=== PATIENT | female | born 1955 | race Caucasian/White ===

== ENCOUNTER 2018-09-20 12:33 | Inpatient (IN) | payer BC ==
[~2018-09-20] VITALS: Ht 168.9 cm; Wt 146.4 kg
[2018-09-20] MEDS ORDERED: SERT50TA28 PO (13:19)
[2018-09-20] MEDS ORDERED: SPIR25TA5 PO (13:19)
[2018-09-20] MEDS ORDERED: LIOT5TAB3 PO (13:19)
[2018-09-20] MEDS ORDERED: FURO20TA3 PO (13:19)
[2018-09-20] MEDS ORDERED: LEVO200T5 PO (13:19)
[2018-09-20] MEDS ORDERED: POTA10TA17 PO (13:19)
[2018-09-20 13:22] LABS: BASOPHILS # (AUTO) 0.02 x10^3/uL (0-0.1); BASOPHILS % (AUTO) 0 % (0-1); EOSINOPHILS # (AUTO) 0.15 x10^3/uL (0-0.4); EOSINOPHILS % (AUTO) 2 % (1-7); LYMPHOCYTES # (AUTO) 0.43 x10^3/uL (1-3.4); LYMPHOCYTES % (AUTO) 7 % (22-44); MD NO; MEAN CORPUSCULAR HEMOGLOBIN 26.9 pg (27.0-34.8); MEAN CORPUSCULAR HGB CONC 32.4 g/dL (32.4-35.8); MEAN CORPUSCULAR VOLUME 83.1 fL (80-100); MEAN PLATELET VOLUME 7.9 fL (7.4-10.4); MONOCYTES % (AUTO) 8 % (2-9); NEUTROPHILS # (AUTO) 5.42 x10^3/uL (1.8-6.8); NEUTROPHILS % (AUTO) 83 % (42-75); PLATELET COUNT 152 x10^3/uL (130-400); RED BLOOD COUNT 5.98 x10^6/uL (3.82-5.3); RED CELL DISTRIBUTION WIDTH 18.1 % (9.6-15.2)
[2018-09-20 13:34] LABS: CHLORIDE 103 mmol/L (98-107)
[2018-09-20 13:43] LABS: ANION GAP 7 mmol/L (5-15); CALCIUM 9.1 mg/dL (8.5-10.1); CREATININE 0.76 mg/dL (0.55-1.02); TROPONIN I < 0.015 ng/mL (0.000-0.045)
[2018-09-20] MEDS ORDERED: FUROSEMIDE 40 MG/4 ML ONE (14:14)
[2018-09-20] MEDS ORDERED: FUROSEMIDE 40 MG/4 ML IV ONE (15:00)
[2018-09-20 15:38] VITALS: BP 132/80
[2018-09-20 15:41] VITALS: BP 132/80
[2018-09-20 16:17] LABS: HEMOGLOBIN A1C 6.5 % (4.2-6.3)
[2018-09-20] MEDS: ENOXAPARIN 40 MG/0.4 ML SQ SCH (16:59)
[2018-09-20] MEDS: FUROSEMIDE 40 MG/4 ML IV SCH (17:00)
[2018-09-20 19:26] LABS: TROPONIN I < 0.015 ng/mL (0.000-0.045)
[2018-09-20 19:37] VITALS: BP 100/66
[2018-09-20] MEDS: ACETAMINOPHEN 325 MG TABLET PO PRN (21:16)
[2018-09-21] MEDS ORDERED: DIPHENHYDRAMINE 25 MG CAPSULE PO PRN
[2018-09-21 00:58] VITALS: BP 93/54
[2018-09-21 05:20] LABS: CHLORIDE 100 mmol/L (98-107)
[2018-09-21 05:30] LABS: ALANINE AMINOTRANSFERASE 17 U/L (12-78); ALBUMIN 2.7 g/dL (3.4-5.0); ALKALINE PHOSPHATASE 102 U/L (45-117); ANION GAP 6 mmol/L (5-15); BILIRUBIN,TOTAL 2.1 mg/dL (0.2-1.0); CALCIUM 8.7 mg/dL (8.5-10.1); CHOL/HDL RATIO 4.1; CHOLESTEROL, TOTAL 136 mg/dL (140-239); CREATININE 0.76 mg/dL (0.55-1.02); HDL CHOL % 24 % (28-40); HDL CHOLESTEROL (DIRECT) 33 mg/dL (40-60); LDL CHOLESTEROL,CALCULATED 88 mg/dL (54-169); LDL/HDL RATIO 2.7 (0.5-3.0); TOTAL PROTEIN 7.4 g/dL (6.4-8.2); TRIGLYCERIDES 77 mg/dL (50-200); VLDL CHOLESTEROL 15 mg/dL (0-25)
[2018-09-21 05:37] LABS: BASOPHILS # (AUTO) 0.04 x10^3/uL (0-0.1); BASOPHILS % (AUTO) 1 % (0-1); EOSINOPHILS # (AUTO) 0.51 x10^3/uL (0-0.4); EOSINOPHILS % (AUTO) 9 % (1-7); LYMPHOCYTES # (AUTO) 0.62 x10^3/uL (1-3.4); LYMPHOCYTES % (AUTO) 11 % (22-44); MD NO; MEAN CORPUSCULAR HGB CONC 32.5 g/dL (32.4-35.8); MEAN CORPUSCULAR VOLUME 83.2 fL (80-100); MONOCYTES # (AUTO) 0.69 x10^3/uL (0.2-0.8); MONOCYTES % (AUTO) 12 % (2-9); NEUTROPHILS # (AUTO) 3.98 x10^3/uL (1.8-6.8); NEUTROPHILS % (AUTO) 68 % (42-75); PLATELET COUNT 166 x10^3/uL (130-400); RED BLOOD COUNT 5.47 x10^6/uL (3.82-5.3); RED CELL DISTRIBUTION WIDTH 17.3 % (9.6-15.2)
[2018-09-21 07:16] VITALS: BP 100/59
[2018-09-21] MEDS ORDERED: LEVOTHYROXINE 200 MCG TABLET PO SCH (09:00)
[2018-09-21] MEDS ORDERED: LIOTHYRONINE 5 MCG TABLET PO SCH ×2 (09:00)
[2018-09-21] MEDS: FUROSEMIDE 40 MG/4 ML IV SCH ×2 (09:58→17:36)
[2018-09-21] MEDS: SERTRALINE 50MG TABLET PO SCH (09:58)
[2018-09-21] MEDS: POTASSIUM CHLORIDE 20 MEQ TAB.ER.PRT PO SCH (09:58)
[2018-09-21 12:21] VITALS: BP 104/56
[2018-09-21] MEDS: ACETAMINOPHEN 325 MG TABLET PO PRN (13:25)
[2018-09-21] MEDS: ENOXAPARIN 40 MG/0.4 ML SQ SCH (17:36)
[2018-09-21 19:24] VITALS: BP 108/59
[2018-09-22 01:32] VITALS: BP 114/62
[2018-09-22] MEDS: ACETAMINOPHEN 325 MG TABLET PO PRN ×2 (02:47→22:04)
[2018-09-22] MEDS: LIOTHYRONINE 5 MCG TABLET PO SCH (05:26)
[2018-09-22 05:37] LABS: ANION GAP 6 mmol/L (5-15); CALCIUM 8.7 mg/dL (8.5-10.1); CHLORIDE 99 mmol/L (98-107)
[2018-09-22 05:39] LABS: CREATININE 0.67 mg/dL (0.55-1.02)
[2018-09-22 05:40] LABS: BASOPHILS # (AUTO) 0.04 x10^3/uL (0-0.1); BASOPHILS % (AUTO) 1 % (0-1); EOSINOPHILS # (AUTO) 0.47 x10^3/uL (0-0.4); EOSINOPHILS % (AUTO) 9 % (1-7); LYMPHOCYTES # (AUTO) 0.55 x10^3/uL (1-3.4); LYMPHOCYTES % (AUTO) 10 % (22-44); MD NO; MEAN CORPUSCULAR HEMOGLOBIN 26.7 pg (27.0-34.8); MEAN CORPUSCULAR HGB CONC 32.1 g/dL (32.4-35.8); MEAN CORPUSCULAR VOLUME 83.2 fL (80-100); MEAN PLATELET VOLUME 7.9 fL (7.4-10.4); MONOCYTES # (AUTO) 0.65 x10^3/uL (0.2-0.8); MONOCYTES % (AUTO) 12 % (2-9); NEUTROPHILS # (AUTO) 3.76 x10^3/uL (1.8-6.8); NEUTROPHILS % (AUTO) 69 % (42-75); PLATELET COUNT 159 x10^3/uL (130-400); RED BLOOD COUNT 5.31 x10^6/uL (3.82-5.3); RED CELL DISTRIBUTION WIDTH 17.2 % (9.6-15.2)
[2018-09-22] MEDS: LEVOTHYROXINE 200 MCG TABLET PO SCH (07:01)
[2018-09-22 07:09] VITALS: BP 95/62
[2018-09-22] MEDS: POTASSIUM CHLORIDE 20 MEQ TAB.ER.PRT PO SCH (09:55)
[2018-09-22] MEDS: SERTRALINE 50MG TABLET PO SCH (09:55)
[2018-09-22] MEDS: FUROSEMIDE 40 MG/4 ML IV SCH (09:56)
[2018-09-22 12:36] VITALS: BP 104/68
[2018-09-22] MEDS ORDERED: LORazepam 2 MG/ML, 1ML IVPush ONE (17:00)
[2018-09-22] MEDS: FUROSEMIDE 20 MG TABLET PO SCH (18:18)
[2018-09-22] MEDS: ENOXAPARIN 40 MG/0.4 ML SQ SCH (18:18)
[2018-09-22 18:50] VITALS: BP 109/68
[2018-09-23 00:40] VITALS: BP 106/64
[2018-09-23] MEDS: LEVOTHYROXINE 200 MCG TABLET PO SCH (05:34)
[2018-09-23] MEDS: LIOTHYRONINE 5 MCG TABLET PO SCH (05:34)
[2018-09-23 06:11] LABS: ANION GAP 6 mmol/L (5-15); CALCIUM 8.9 mg/dL (8.5-10.1); CHLORIDE 100 mmol/L (98-107); CREATININE 0.61 mg/dL (0.55-1.02)
[2018-09-23 07:25] VITALS: BP 95/61
[2018-09-23] MEDS: POTASSIUM CHLORIDE 20 MEQ TAB.ER.PRT PO SCH (09:15)
[2018-09-23] MEDS: SERTRALINE 50MG TABLET PO SCH (09:16)
[2018-09-23] MEDS: FUROSEMIDE 20 MG TABLET PO SCH ×2 (09:16→16:15)
[2018-09-23 13:27] VITALS: BP 96/66
[2018-09-23 16:12] VITALS: BP 122/74
[2018-09-23] MEDS: ENOXAPARIN 40 MG/0.4 ML SQ SCH (16:15)
[2018-09-23 19:40] VITALS: BP 104/61
[2018-09-24 01:31] VITALS: BP 103/69
[2018-09-24] MEDS: ACETAMINOPHEN 325 MG TABLET PO PRN (04:19)
[2018-09-24 05:21] LABS: ANION GAP 3 mmol/L (5-15); CALCIUM 8.8 mg/dL (8.5-10.1); CHLORIDE 99 mmol/L (98-107); CREATININE 0.62 mg/dL (0.55-1.02)
[2018-09-24] MEDS: LIOTHYRONINE 5 MCG TABLET PO SCH (05:48)
[2018-09-24] MEDS: LEVOTHYROXINE 200 MCG TABLET PO SCH (05:48)
[2018-09-24] MEDS: FUROSEMIDE 20 MG TABLET PO SCH ×2 (07:45→16:36)
[2018-09-24] MEDS: POTASSIUM CHLORIDE 20 MEQ TAB.ER.PRT PO SCH (07:45)
[2018-09-24 08:16] VITALS: BP 119/72
[2018-09-24] MEDS: SERTRALINE 50MG TABLET PO SCH (09:06)
[2018-09-24 13:19] VITALS: BP 112/72
[2018-09-24] MEDS: ENOXAPARIN 40 MG/0.4 ML SQ SCH (16:00)
[2018-09-24 19:03] VITALS: BP 120/67
[2018-09-25 02:13] VITALS: BP 110/54
[2018-09-25] MEDS: ACETAMINOPHEN 325 MG TABLET PO PRN (02:51)
[2018-09-25] MEDS: LEVOTHYROXINE 200 MCG TABLET PO SCH (05:05)
[2018-09-25] MEDS: LIOTHYRONINE 5 MCG TABLET PO SCH (05:05)
[2018-09-25 07:04] VITALS: BP 98/63
[2018-09-25] MEDS: FUROSEMIDE 20 MG TABLET PO SCH (09:25)
[2018-09-25] MEDS: SERTRALINE 50MG TABLET PO SCH (09:25)
[2018-09-25] MEDS: POTASSIUM CHLORIDE 20 MEQ TAB.ER.PRT PO SCH (09:25)
[2018-09-25] MEDS ORDERED: SPIRONOLACTONE 25 MG TABLET PO SCH (09:30)
[2018-09-25 14:07] VITALS: BP 117/5
== END 2018-09-25 16:15 | disposition home or self-care (01) | DRG 291 ==
LOC: ED 14:36 → EDIP 14:37 → 4WST 15:11 → DCLOUNGE 09-25 15:52
PROVIDERS: ADMIT Hospitalist; ATTEND Hospitalist
DX: I11.0 Hypertensive heart disease with heart failure (principal); J96.01 Acute respiratory failure with hypoxia; J98.11 Atelectasis; E03.9 Hypothyroidism, unspecified; F32.9 Major depressive disorder, single episode, unspecified; G47.33 Obstructive sleep apnea (adult) (pediatric); I27.20 Pulmonary hypertension, unspecified; I50.9 Heart failure, unspecified; I73.9 Peripheral vascular disease, unspecified; M06.9 Rheumatoid arthritis, unspecified; R32 Unspecified urinary incontinence; Z77.090 Contact with and (suspected) exposure to asbestos; Z90.710 Acquired absence of both cervix and uterus; Z98.42 Cataract extraction status, left eye; Z98.41 Cataract extraction status, right eye; Z88.8 Allergy status to other drugs, medicaments and biological substances
CPT/HCPCS: 36415; 71045; 71275; 76700; 80048; 80053; 80061; 82040; 83036; 83735; 83880; 84100; 84443; 84484; 85025; 93005; 93306; 93970; 96374; 99285; G0378; J1650; J1940; J2060; Q0163

== ENCOUNTER → 2018-11-29 | Outpatient (CLI) | payer BC ==
[~2018-11-29] MED LIST: FURO20TA3 PO; LEVO200T5 PO; LIOT5TAB3 PO; POTA10TA17 PO; SERT50TA28 PO; SPIR25TA5 PO
== END | disposition home or self-care (01) ==
LOC: CFH 15:14
PROVIDERS: ATTEND Nurse Practitioner Family
DX: J90 Pleural effusion, not elsewhere classified (principal); J98.4 Other disorders of lung; R59.1 Generalized enlarged lymph nodes; I51.7 Cardiomegaly; I31.1 Chronic constrictive pericarditis; Z87.891 Personal history of nicotine dependence
CPT/HCPCS: 71250

== ENCOUNTER 2019-02-20 17:39 | Inpatient (IN) | payer BC ==
[~2019-02-20] VITALS: Ht 167.6 cm; Wt 149.9 kg
--- NOTE | 2019-02-20 17:53 | NUR ---
LATE ENTRY 174, PT IN TRIAGE ON HER HOME PORTABLE 02 CONCENTRATOR. FINGERS AND NOSE APPEAR CYANOTIC, SP02 79%. PT TO ROOM 25 VIA WHEELCHAIR AND PLACED ON 02 4LNC WITH IMPROVEMENT IN SP02 TO 92%, AND SKIN COLOR IMPROVING.
[2019-02-20] MEDS ORDERED: SODIUM CHLORIDE FLUSH 10ML SYR IVF ONE (18:00)
[2019-02-20] MEDS ORDERED: DILTIAZEM 5 MG/ML, 5ML IV ONE (18:00)
[2019-02-20] MEDS ORDERED: DILTIAZEM 5 MG/ML, 5ML ONE (18:27)
[2019-02-20] MEDS ORDERED: PLEASE ENTER WEIGHT MC SCH (18:30)
[2019-02-20 18:36] LABS: BASOPHILS # (AUTO) 0.01 x10^3/uL (0-0.1); BASOPHILS % (AUTO) 0 % (0-1); EOSINOPHILS # (AUTO) 0.17 x10^3/uL (0-0.4); EOSINOPHILS % (AUTO) 3 % (1-7); LYMPHOCYTES # (AUTO) 0.36 x10^3/uL (1-3.4); LYMPHOCYTES % (AUTO) 7 % (22-44); MD NO; MEAN CORPUSCULAR HEMOGLOBIN 30.8 pg (27.0-34.8); MEAN CORPUSCULAR HGB CONC 32.8 g/dL (32.4-35.8); MEAN CORPUSCULAR VOLUME 93.9 fL (80-100); MEAN PLATELET VOLUME 8.1 fL (7.4-10.4); MONOCYTES # (AUTO) 0.41 x10^3/uL (0.2-0.8); MONOCYTES % (AUTO) 8 % (2-9); NEUTROPHILS # (AUTO) 4.16 x10^3/uL (1.8-6.8); NEUTROPHILS % (AUTO) 81 % (42-75); PLATELET COUNT 134 x10^3/uL (130-400); RED BLOOD COUNT 5.12 x10^6/uL (3.82-5.3); RED CELL DISTRIBUTION WIDTH 15.7 % (9.6-15.2)
[2019-02-20] MEDS ORDERED: HEPARIN 25,000 UNITS/500ML PMX 500 ML ONE (18:36)
[2019-02-20 18:42] LABS: CHLORIDE 103 mmol/L (98-107)
[2019-02-20 18:43] LABS: ALBUMIN 3.2 g/dL (3.4-5.0); ANION GAP 1 mmol/L (5-15); CALCIUM 9.7 mg/dL (8.5-10.1); CREATININE 0.77 mg/dL (0.55-1.02)
[2019-02-20 18:46] LABS: TROPONIN I < 0.015 ng/mL (0.000-0.045)
--- NOTE | 2019-02-20 19:07 | NUR ---
PT RESTING IN ROOM. O2 INCREASED TO 3L NC TO KEEP >92%. ALL OTHER VSS. RN VERIFIED WITH PHARMACY THAT DILTIAZEM AND HEPARIN CAN RUN TOGETHER IN THE SAME LINE. WILL START MEDICATIONS NOW. NO NEEDS EXPRESSED. CALL ENID RICKETTS.
[2019-02-20] MEDS: DILTIAZEM 125 MG in SODIUM CHLORIDE 0.9% 100 ML IV SCH ×4 (19:10→22:50)
--- NOTE | 2019-02-20 19:15 | NUR ---
PT RESTING IN ROOM. VSS. HR DECREASED SINCE DILT ADMIN. PT REPORTS EASIER TO BREATHE. DILT GTT STARTED AND INFUSING NOW. AWAITING HEPARIN PROTOCOL ORDERS AT THIS TIME. 1 SIDERAIL LOWERED PER REQUEST OF PT D/T ANXIETY. PT EDUCATED ON FALL RISKES AND AGREES TO STAY IN BED AND CALL FOR HELP IF NEEDS TO GET UP. NO OTHER REQUESTS AT THIS TIME.
--- NOTE | 2019-02-20 20:02 | NUR ---
call made to pharmacy at this time to enter heparin doses. awaiting order.
[2019-02-20] MEDS ORDERED: LORazepam 1MG TABLET ONE (20:19)
[2019-02-20] MEDS ORDERED: HEPARIN 5,000 UNITS/ML, 1ML IV ONE (20:30)
[2019-02-20] MEDS ORDERED: HEPARIN 25,000 UNITS/500ML PMX 500 ML IV PRN ×2 (20:30→22:30)
[2019-02-20] MEDS ORDERED: HEPARIN 5,000 UNITS/ML, 1ML IV PRN (20:30)
[2019-02-20] MEDS ORDERED: LORazepam 1MG TABLET PO ONE (20:30)
[2019-02-20] MEDS ORDERED: HEPARIN 5,000 UNITS/ML, 1ML ONE (20:31)
--- NOTE | 2019-02-20 20:35 | NUR ---
received rm assignment but rhe rm is cleaing per janee aguilar tele sup
--- NOTE | 2019-02-20 20:50 | NUR ---
PT RESTING IN ROOM WITH LIGHTS DIMMED. VSS. HR 70S-90S. 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 HEPARIN AND DILTIAZEM INFUSING AT THIS TIME. NO NEEDS EXPRESSED. AWAITING ROOM ASSIGNMENT.
--- NOTE | 2019-02-20 21:14 | NUR ---
report to lauren kaba. pt ready for transport.
[2019-02-20] MEDS ORDERED: FUROSEMIDE 20 MG TABLET PO SCH (21:30)
[2019-02-20 21:40] VITALS: BP 127/78
[2019-02-20] MEDS ORDERED: ONDANSETRON ODT 4 MG PO PRN (22:00)
[2019-02-20] MEDS: LIOTHYRONINE MC SCH (22:00)
[2019-02-20] MEDS ORDERED: LIDODERM 5% PATCH TD PRN (22:00)
[2019-02-20] MEDS ORDERED: ENALAPRILAT 1.25 MG/ML, 2ML IVPush PRN (22:00)
[2019-02-20] MEDS: SPIRONOLACTONE 25 MG TABLET PO SCH (22:30)
[2019-02-20] MEDS: FUROSEMIDE 40 MG/4 ML IV SCH (22:31)
[2019-02-21] MEDS: TEMAZEPAM 15 MG CAPSULE PO PRN ×2 (00:12→23:19)
[2019-02-21 01:14] VITALS: BP 128/72
[2019-02-21 02:48] LABS: TROPONIN I < 0.015 ng/mL (0.000-0.045)
[2019-02-21] MEDS: HEPARIN 5,000 UNITS/ML, 1ML IV PRN ×3 (02:58→22:59)
[2019-02-21] MEDS: LIOTHYRONINE MC SCH (06:00)
[2019-02-21] MEDS: LEVOTHYROXINE 200 MCG TABLET PO SCH (06:01)
[2019-02-21] MEDS: DILTIAZEM 125 MG in SODIUM CHLORIDE 0.9% 100 ML IV SCH ×4 (06:11→22:23)
[2019-02-21 06:20] LABS: MEAN CORPUSCULAR HEMOGLOBIN 30.8 pg (27.0-34.8); MEAN CORPUSCULAR HGB CONC 32.4 g/dL (32.4-35.8); MEAN CORPUSCULAR VOLUME 95.1 fL (80-100); PLATELET COUNT 141 x10^3/uL (130-400); RED BLOOD COUNT 5.04 x10^6/uL (3.82-5.3); RED CELL DISTRIBUTION WIDTH 15.9 % (9.6-15.2)
[2019-02-21 06:35] LABS: ANION GAP 4 mmol/L (5-15); CALCIUM 9.1 mg/dL (8.5-10.1); CHLORIDE 101 mmol/L (98-107)
[2019-02-21 06:40] LABS: CREATININE 0.78 mg/dL (0.55-1.02); TROPONIN I < 0.015 ng/mL (0.000-0.045)
[2019-02-21 07:25] LABS: MD SCAN
[2019-02-21 07:26] LABS: BASOPHILS # (AUTO) 0.02 x10^3/uL (0-0.1); BASOPHILS % (AUTO) 0 % (0-1); EOSINOPHILS # (AUTO) 0.26 x10^3/uL (0-0.4); EOSINOPHILS % (AUTO) 4 % (1-7); LYMPHOCYTES # (AUTO) 0.46 x10^3/uL (1-3.4); LYMPHOCYTES % (AUTO) 7 % (22-44); MONOCYTES # (AUTO) 0.69 x10^3/uL (0.2-0.8); MONOCYTES % (AUTO) 11 % (2-9); NEUTROPHILS # (AUTO) 4.99 x10^3/uL (1.8-6.8); NEUTROPHILS % (AUTO) 78 % (42-75)
[2019-02-21 08:06] VITALS: BP 130/85
[2019-02-21] MEDS: SPIRONOLACTONE 25 MG TABLET PO SCH ×2 (08:13→20:18)
[2019-02-21] MEDS: FUROSEMIDE 40 MG/4 ML IV SCH ×2 (08:14→17:44)
[2019-02-21] MEDS ORDERED: SERTRALINE 50MG TABLET PO SCH (09:00)
[2019-02-21] MEDS ORDERED: LIOTHYRONINE 5 MCG TABLET PO SCH (09:00)
[2019-02-21] MEDS ORDERED: POTA10CA PO (12:32)
[2019-02-21] MEDS: POTASSIUM CHLORIDE 10 MEQ TABLET.ER PO SCH (12:49)
[2019-02-21] MEDS: LIOTHYRONINE 5 MCG TABLET PO SCH (12:49)
[2019-02-21] MEDS ORDERED: MAGNESIUM SULFATE PMX 2GM/50ML 50 ML IV ONE (13:00)
[2019-02-21 15:58] VITALS: BP 115/77
[2019-02-21] MEDS: SERTRALINE 50MG TABLET PO SCH (20:18)
[2019-02-21] MEDS: ACETAMINOPHEN 325 MG TABLET PO PRN (23:19)
[2019-02-22 03:00] VITALS: BP 126/78
[2019-02-22] MEDS: LEVOTHYROXINE 200 MCG TABLET PO SCH (05:37)
[2019-02-22 05:47] LABS: ANION GAP 5 mmol/L (5-15); CALCIUM 9.1 mg/dL (8.5-10.1); CHLORIDE 100 mmol/L (98-107)
[2019-02-22 06:00] LABS: CREATININE 0.78 mg/dL (0.55-1.02); FREE T4 (FREE THYROXINE) 1.08 ng/dL (0.76-1.46)
[2019-02-22 06:31] LABS: BASOPHILS # (AUTO) 0.09 x10^3/uL (0-0.1); BASOPHILS % (AUTO) 1 % (0-1); EOSINOPHILS # (AUTO) 0.28 x10^3/uL (0-0.4); EOSINOPHILS % (AUTO) 4 % (1-7); LYMPHOCYTES # (AUTO) 0.58 x10^3/uL (1-3.4); LYMPHOCYTES % (AUTO) 8 % (22-44); MD NO; MEAN CORPUSCULAR HEMOGLOBIN 30.1 pg (27.0-34.8); MEAN CORPUSCULAR HGB CONC 32.5 g/dL (32.4-35.8); MEAN CORPUSCULAR VOLUME 92.6 fL (80-100); MEAN PLATELET VOLUME 8.1 fL (7.4-10.4); MONOCYTES # (AUTO) 0.71 x10^3/uL (0.2-0.8); MONOCYTES % (AUTO) 10 % (2-9); NEUTROPHILS # (AUTO) 5.31 x10^3/uL (1.8-6.8); NEUTROPHILS % (AUTO) 76 % (42-75); PLATELET COUNT 129 x10^3/uL (130-400); RED BLOOD COUNT 5.04 x10^6/uL (3.82-5.3); RED CELL DISTRIBUTION WIDTH 15.3 % (9.6-15.2)
[2019-02-22] MEDS ORDERED: DILTIAZEM 125 MG in SODIUM CHLORIDE 0.9% 100 ML IV SCH (07:30)
[2019-02-22 07:51] LABS: INTERNATIONAL NORMALIZED RATIO 1.15 (0.93-1.1)
[2019-02-22 08:30] VITALS: BP 133/72
[2019-02-22] MEDS: POTASSIUM CHLORIDE 10 MEQ TABLET.ER PO SCH (08:58)
[2019-02-22] MEDS: FUROSEMIDE 40 MG/4 ML IV SCH ×2 (08:58→16:24)
[2019-02-22] MEDS: APIXABAN 5 MG TABLET PO SCH ×2 (08:58→20:35)
[2019-02-22] MEDS: SERTRALINE 50MG TABLET PO SCH ×2 (08:58→20:35)
[2019-02-22] MEDS: SPIRONOLACTONE 25 MG TABLET PO SCH ×2 (08:58→20:35)
[2019-02-22] MEDS ORDERED: LIOTHYRONINE 5 MCG TABLET PO SCH (09:00)
[2019-02-22] MEDS: LIOTHYRONINE 5 MCG TABLET PO SCH (09:02)
[2019-02-22] MEDS ORDERED: WARFARIN MODERAT DOSE PROTOCOL XX SCH (12:00)
[2019-02-22 14:30] VITALS: BP 106/62
[2019-02-22] MEDS ORDERED: DILTIAZEM 60 MG CAP.ER.12H PO SCH (16:00)
[2019-02-22] MEDS: DILTIAZEM 240 MG CAP.ER.24H PO SCH (16:24)
[2019-02-22] MEDS: ACETAMINOPHEN 325 MG TABLET PO PRN (17:09)
[2019-02-22 19:47] VITALS: BP 111/71
[2019-02-23 00:43] VITALS: BP 128/75
[2019-02-23] MEDS: TEMAZEPAM 15 MG CAPSULE PO PRN ×2 (00:46→22:39)
[2019-02-23] MEDS: LEVOTHYROXINE 200 MCG TABLET PO SCH (05:48)
[2019-02-23 05:55] LABS: INTERNATIONAL NORMALIZED RATIO 1.22 (0.93-1.1); PROTHROMBIN TIME 12.7 Seconds (9.6-11.5)
[2019-02-23 05:59] LABS: ANION GAP 6 mmol/L (5-15); CALCIUM 9.3 mg/dL (8.5-10.1); CHLORIDE 98 mmol/L (98-107)
[2019-02-23 06:00] LABS: CREATININE 0.74 mg/dL (0.55-1.02)
[2019-02-23 07:22] VITALS: BP 102/70
[2019-02-23] MEDS: ACETAMINOPHEN 325 MG TABLET PO PRN (07:35)
[2019-02-23] MEDS: FUROSEMIDE 40 MG/4 ML IV SCH ×2 (08:26→16:30)
[2019-02-23] MEDS: APIXABAN 5 MG TABLET PO SCH ×2 (08:26→21:08)
[2019-02-23] MEDS: SERTRALINE 50MG TABLET PO SCH ×2 (08:26→21:08)
[2019-02-23] MEDS: POTASSIUM CHLORIDE 10 MEQ TABLET.ER PO SCH (08:26)
[2019-02-23] MEDS: SPIRONOLACTONE 25 MG TABLET PO SCH ×2 (08:27→21:08)
[2019-02-23] MEDS: DILTIAZEM 240 MG CAP.ER.24H PO SCH (08:47)
[2019-02-23] MEDS: LIOTHYRONINE 5 MCG TABLET PO SCH (08:47)
[2019-02-23 12:40] VITALS: BP 109/70
[2019-02-23 13:16] LABS: MICROSCOPIC INDICATED
[2019-02-23 20:00] VITALS: BP 116/72
[2019-02-24 00:02] VITALS: BP 111/73
[2019-02-24] MEDS: ACETAMINOPHEN 325 MG TABLET PO PRN (03:31)
[2019-02-24] MEDS: LEVOTHYROXINE 200 MCG TABLET PO SCH (06:03)
[2019-02-24 07:37] VITALS: BP 118/80
[2019-02-24] MEDS: FUROSEMIDE 40 MG/4 ML IV SCH ×2 (08:55→17:04)
[2019-02-24] MEDS: DILTIAZEM 240 MG CAP.ER.24H PO SCH (08:56)
[2019-02-24] MEDS: SERTRALINE 50MG TABLET PO SCH ×2 (08:56→20:22)
[2019-02-24] MEDS: APIXABAN 5 MG TABLET PO SCH ×2 (08:56→20:22)
[2019-02-24] MEDS: LIOTHYRONINE 5 MCG TABLET PO SCH (08:56)
[2019-02-24] MEDS: POTASSIUM CHLORIDE 10 MEQ TABLET.ER PO SCH (08:56)
[2019-02-24] MEDS: SPIRONOLACTONE 25 MG TABLET PO SCH ×2 (09:00→20:22)
[2019-02-24] MEDS: DOCUSATE 100 MG CAPSULE PO PRN (10:25)
[2019-02-24 13:21] VITALS: BP 104/66
[2019-02-24 18:52] VITALS: BP 106/69
[2019-02-24] MEDS ORDERED: SULFAMETH./TRIMETHOPRIM DS 800MG/160MG TABLET PO ONE (20:00)
[2019-02-24] MEDS ORDERED: SULFAMETH/TRIMETHOPRIM 40-8MG/ML SUSP. PO SCH (21:00)
[2019-02-25 01:25] VITALS: BP 128/90
[2019-02-25 04:33] LABS: BASOPHILS # (AUTO) 0.03 x10^3/uL (0-0.1); BASOPHILS % (AUTO) 0 % (0-1); EOSINOPHILS # (AUTO) 0.38 x10^3/uL (0-0.4); EOSINOPHILS % (AUTO) 5 % (1-7); LYMPHOCYTES # (AUTO) 0.48 x10^3/uL (1-3.4); LYMPHOCYTES % (AUTO) 6 % (22-44); MD NO; MEAN CORPUSCULAR HEMOGLOBIN 30.4 pg (27.0-34.8); MEAN CORPUSCULAR HGB CONC 32.5 g/dL (32.4-35.8); MEAN CORPUSCULAR VOLUME 93.4 fL (80-100); MEAN PLATELET VOLUME 7.9 fL (7.4-10.4); MONOCYTES # (AUTO) 0.88 x10^3/uL (0.2-0.8); MONOCYTES % (AUTO) 12 % (2-9); NEUTROPHILS # (AUTO) 5.93 x10^3/uL (1.8-6.8); NEUTROPHILS % (AUTO) 77 % (42-75); PLATELET COUNT 154 x10^3/uL (130-400); RED BLOOD COUNT 4.99 x10^6/uL (3.82-5.3); RED CELL DISTRIBUTION WIDTH 15.3 % (9.6-15.2)
[2019-02-25 04:44] LABS: ANION GAP 6 mmol/L (5-15); CALCIUM 9.1 mg/dL (8.5-10.1); CHLORIDE 95 mmol/L (98-107); CREATININE 0.73 mg/dL (0.55-1.02)
[2019-02-25] MEDS: LEVOTHYROXINE 200 MCG TABLET PO SCH (06:00)
[2019-02-25] MEDS: FUROSEMIDE 40 MG/4 ML IV SCH ×3 (07:30→22:56)
[2019-02-25 08:07] VITALS: BP 120/74
[2019-02-25] MEDS: SPIRONOLACTONE 25 MG TABLET PO SCH ×2 (08:23→20:39)
[2019-02-25] MEDS: APIXABAN 5 MG TABLET PO SCH ×2 (08:23→20:39)
[2019-02-25] MEDS: DILTIAZEM 240 MG CAP.ER.24H PO SCH (08:23)
[2019-02-25] MEDS: SERTRALINE 50MG TABLET PO SCH ×2 (08:24→20:39)
[2019-02-25] MEDS: POTASSIUM CHLORIDE 10 MEQ TABLET.ER PO SCH (08:24)
[2019-02-25] MEDS: LIOTHYRONINE 5 MCG TABLET PO SCH (08:32)
[2019-02-25 12:56] VITALS: BP 130/59
[2019-02-25] MEDS ORDERED: SULFAMETH./TRIMETHOPRIM DS 800MG/160MG TABLET PO ONE (14:59)
[2019-02-25] MEDS ORDERED: ALBUTEROL SULFATE 2.5 MG/3 ML NPPB SCH (15:00)
[2019-02-25] MEDS ORDERED: ALBUTEROL SULFATE 2.5 MG/3 ML NPPB PRN (16:30)
[2019-02-25 20:12] VITALS: BP 99/66
[2019-02-25] MEDS: SULFAMETH./TRIMETHOPRIM DS 800MG/160MG TABLET PO SCH (20:40)
[2019-02-25 20:44] VITALS: BP 123/73
[2019-02-25 22:55] VITALS: BP 119/72
[2019-02-26 01:08] VITALS: BP 122/80
[2019-02-26] MEDS: TEMAZEPAM 15 MG CAPSULE PO PRN ×2 (02:00→21:31)
[2019-02-26] MEDS: ACETAMINOPHEN 325 MG TABLET PO PRN ×2 (02:00→20:22)
[2019-02-26] MEDS: LEVOTHYROXINE 200 MCG TABLET PO SCH (05:43)
[2019-02-26 08:20] VITALS: BP 109/74
[2019-02-26] MEDS: SULFAMETH./TRIMETHOPRIM DS 800MG/160MG TABLET PO SCH ×2 (09:52→20:22)
[2019-02-26] MEDS: FUROSEMIDE 40 MG/4 ML IV SCH ×3 (09:52→21:31)
[2019-02-26] MEDS: SERTRALINE 50MG TABLET PO SCH ×2 (09:53→20:22)
[2019-02-26] MEDS: POTASSIUM CHLORIDE 10 MEQ TABLET.ER PO SCH (09:53)
[2019-02-26] MEDS: APIXABAN 5 MG TABLET PO SCH ×2 (09:53→20:22)
[2019-02-26] MEDS: SPIRONOLACTONE 25 MG TABLET PO SCH ×2 (09:54→20:22)
[2019-02-26] MEDS: DILTIAZEM 240 MG CAP.ER.24H PO SCH (09:54)
[2019-02-26] MEDS: LIOTHYRONINE 5 MCG TABLET PO SCH (10:12)
[2019-02-26 15:03] VITALS: BP 131/63
[2019-02-26 19:39] VITALS: BP 106/70
[2019-02-26 21:31] VITALS: BP 106/63
[2019-02-27 01:16] VITALS: BP 120/72
[2019-02-27] MEDS: LEVOTHYROXINE 200 MCG TABLET PO SCH (05:31)
[2019-02-27 05:55] LABS: BASOPHILS # (AUTO) 0.02 x10^3/uL (0-0.1); BASOPHILS % (AUTO) 0 % (0-1); EOSINOPHILS # (AUTO) 0.41 x10^3/uL (0-0.4); EOSINOPHILS % (AUTO) 7 % (1-7); LYMPHOCYTES % (AUTO) 7 % (22-44); MD NO; MEAN CORPUSCULAR HEMOGLOBIN 30.3 pg (27.0-34.8); MEAN CORPUSCULAR HGB CONC 32.7 g/dL (32.4-35.8); MEAN CORPUSCULAR VOLUME 92.6 fL (80-100); MEAN PLATELET VOLUME 7.7 fL (7.4-10.4); MONOCYTES # (AUTO) 0.79 x10^3/uL (0.2-0.8); MONOCYTES % (AUTO) 14 % (2-9); NEUTROPHILS # (AUTO) 4.25 x10^3/uL (1.8-6.8); NEUTROPHILS % (AUTO) 72 % (42-75); PLATELET COUNT 142 x10^3/uL (130-400); RED BLOOD COUNT 4.89 x10^6/uL (3.82-5.3); RED CELL DISTRIBUTION WIDTH 15.6 % (9.6-15.2)
[2019-02-27 06:06] LABS: ANION GAP 6 mmol/L (5-15); CALCIUM 9.2 mg/dL (8.5-10.1); CHLORIDE 93 mmol/L (98-107); CREATININE 0.97 mg/dL (0.55-1.02)
[2019-02-27 07:48] VITALS: BP 102/75
[2019-02-27] MEDS: SERTRALINE 50MG TABLET PO SCH ×2 (09:34→21:19)
[2019-02-27] MEDS: DOCUSATE 100 MG CAPSULE PO PRN (09:34)
[2019-02-27] MEDS: POTASSIUM CHLORIDE 10 MEQ TABLET.ER PO SCH (09:34)
[2019-02-27] MEDS: SPIRONOLACTONE 25 MG TABLET PO SCH ×2 (09:34→21:19)
[2019-02-27] MEDS: FUROSEMIDE 40 MG/4 ML IV SCH ×3 (09:34→21:19)
[2019-02-27] MEDS: DILTIAZEM 240 MG CAP.ER.24H PO SCH (09:34)
[2019-02-27] MEDS: LIOTHYRONINE 5 MCG TABLET PO SCH (09:34)
[2019-02-27] MEDS: APIXABAN 5 MG TABLET PO SCH ×2 (09:34→21:19)
[2019-02-27] MEDS: SULFAMETH./TRIMETHOPRIM DS 800MG/160MG TABLET PO SCH ×2 (09:34→21:19)
[2019-02-27] MEDS: ACETAMINOPHEN 325 MG TABLET PO PRN (12:32)
[2019-02-27 13:00] VITALS: BP 116/63
[2019-02-27 18:47] VITALS: BP 145/69
[2019-02-27] MEDS: TEMAZEPAM 15 MG CAPSULE PO PRN (23:57)
[2019-02-28] MEDS: TEMAZEPAM 15 MG CAPSULE PO PRN ×2 (01:25→21:56)
[2019-02-28 02:27] VITALS: BP 107/63
[2019-02-28] MEDS: LEVOTHYROXINE 200 MCG TABLET PO SCH (05:57)
[2019-02-28 06:21] LABS: BASOPHILS # (AUTO) 0.08 x10^3/uL (0-0.1); BASOPHILS % (AUTO) 1 % (0-1); EOSINOPHILS # (AUTO) 0.46 x10^3/uL (0-0.4); EOSINOPHILS % (AUTO) 7 % (1-7); LYMPHOCYTES # (AUTO) 0.51 x10^3/uL (1-3.4); LYMPHOCYTES % (AUTO) 8 % (22-44); MD NO; MEAN CORPUSCULAR HEMOGLOBIN 31.4 pg (27.0-34.8); MEAN CORPUSCULAR HGB CONC 33.6 g/dL (32.4-35.8); MEAN CORPUSCULAR VOLUME 93.3 fL (80-100); MEAN PLATELET VOLUME 8.1 fL (7.4-10.4); MONOCYTES # (AUTO) 0.84 x10^3/uL (0.2-0.8); MONOCYTES % (AUTO) 13 % (2-9); NEUTROPHILS # (AUTO) 4.43 x10^3/uL (1.8-6.8); NEUTROPHILS % (AUTO) 70 % (42-75); PLATELET COUNT 139 x10^3/uL (130-400); RED CELL DISTRIBUTION WIDTH 15.2 % (9.6-15.2)
[2019-02-28 06:22] LABS: ANION GAP 6 mmol/L (5-15); CALCIUM 9.1 mg/dL (8.5-10.1); CHLORIDE 95 mmol/L (98-107)
[2019-02-28 06:25] LABS: CREATININE 1.06 mg/dL (0.55-1.02)
[2019-02-28 06:34] VITALS: BP 106/52
[2019-02-28] MEDS: APIXABAN 5 MG TABLET PO SCH ×2 (09:48→21:57)
[2019-02-28] MEDS: SULFAMETH./TRIMETHOPRIM DS 800MG/160MG TABLET PO SCH ×2 (09:48→21:57)
[2019-02-28] MEDS: SERTRALINE 50MG TABLET PO SCH ×2 (09:48→21:57)
[2019-02-28] MEDS: SPIRONOLACTONE 25 MG TABLET PO SCH ×2 (09:49→21:57)
[2019-02-28] MEDS: FUROSEMIDE 40 MG/4 ML IV SCH ×2 (09:49→17:32)
[2019-02-28] MEDS: DILTIAZEM 240 MG CAP.ER.24H PO SCH (09:49)
[2019-02-28] MEDS: LIOTHYRONINE 5 MCG TABLET PO SCH (09:49)
[2019-02-28] MEDS: POTASSIUM CHLORIDE 10 MEQ TABLET.ER PO SCH (09:49)
[2019-02-28] MEDS: DOCUSATE 100 MG CAPSULE PO PRN ×2 (12:31→22:00)
[2019-02-28 13:20] VITALS: BP 109/61
[2019-02-28] MEDS ORDERED: FUROSEMIDE 40 MG/4 ML ONE (17:27)
[2019-02-28 17:29] VITALS: BP 106/51
[2019-02-28 19:00] VITALS: BP 104/65
[2019-03-01] VITALS (11 sets, daily range): BP systolic 105–133; BP diastolic 53–80
--- NOTE | 2019-03-01 02:16 | NUR ---
MAYA NICHOLSON - Fall Risk Medication(s) present and receiving anticoagulants.
[2019-03-01] MEDS: LEVOTHYROXINE 200 MCG TABLET PO SCH (06:10)
[2019-03-01 06:51] LABS: BASOPHILS # (AUTO) 0.01 x10^3/uL (0-0.1); BASOPHILS % (AUTO) 0 % (0-1); EOSINOPHILS % (AUTO) 7 % (1-7); LYMPHOCYTES # (AUTO) 0.45 x10^3/uL (1-3.4); LYMPHOCYTES % (AUTO) 7 % (22-44); MD NO; MEAN CORPUSCULAR HEMOGLOBIN 30.9 pg (27.0-34.8); MEAN CORPUSCULAR HGB CONC 33.1 g/dL (32.4-35.8); MEAN CORPUSCULAR VOLUME 93.4 fL (80-100); MONOCYTES % (AUTO) 13 % (2-9); NEUTROPHILS # (AUTO) 4.42 x10^3/uL (1.8-6.8); NEUTROPHILS % (AUTO) 73 % (42-75); PLATELET COUNT 158 x10^3/uL (130-400); RED BLOOD COUNT 4.97 x10^6/uL (3.82-5.3); RED CELL DISTRIBUTION WIDTH 15.1 % (9.6-15.2)
[2019-03-01 07:00] LABS: ANION GAP 2 mmol/L (5-15); CALCIUM 9.2 mg/dL (8.5-10.1); CHLORIDE 93 mmol/L (98-107)
[2019-03-01 07:01] LABS: CREATININE 1.14 mg/dL (0.55-1.02)
[2019-03-01] MEDS: FUROSEMIDE 40 MG/4 ML IV SCH ×2 (10:18→20:45)
[2019-03-01] MEDS: SPIRONOLACTONE 25 MG TABLET PO SCH ×2 (10:19→20:43)
[2019-03-01] MEDS: SULFAMETH./TRIMETHOPRIM DS 800MG/160MG TABLET PO SCH ×2 (10:19→20:44)
[2019-03-01] MEDS: POTASSIUM CHLORIDE 10 MEQ TABLET.ER PO SCH (10:19)
[2019-03-01] MEDS: SERTRALINE 50MG TABLET PO SCH ×2 (10:19→20:44)
[2019-03-01] MEDS: APIXABAN 5 MG TABLET PO SCH ×2 (10:19→20:44)
[2019-03-01] MEDS: DILTIAZEM 240 MG CAP.ER.24H PO SCH (10:19)
[2019-03-01] MEDS: LIOTHYRONINE 5 MCG TABLET PO SCH (10:26)
[2019-03-01] MEDS: ACETAMINOPHEN 325 MG TABLET PO PRN (20:44)
[2019-03-02 02:33] VITALS: BP 121/81
[2019-03-02] MEDS: TEMAZEPAM 15 MG CAPSULE PO PRN (03:00)
[2019-03-02 05:15] LABS: BASOPHILS # (AUTO) 0.03 x10^3/uL (0-0.1); BASOPHILS % (AUTO) 0 % (0-1); EOSINOPHILS # (AUTO) 0.36 x10^3/uL (0-0.4); EOSINOPHILS % (AUTO) 6 % (1-7); LYMPHOCYTES # (AUTO) 0.41 x10^3/uL (1-3.4); LYMPHOCYTES % (AUTO) 7 % (22-44); MD NO; MEAN CORPUSCULAR HEMOGLOBIN 30.6 pg (27.0-34.8); MEAN CORPUSCULAR VOLUME 92.7 fL (80-100); MEAN PLATELET VOLUME 8.1 fL (7.4-10.4); MONOCYTES # (AUTO) 0.81 x10^3/uL (0.2-0.8); MONOCYTES % (AUTO) 13 % (2-9); NEUTROPHILS # (AUTO) 4.52 x10^3/uL (1.8-6.8); NEUTROPHILS % (AUTO) 74 % (42-75); PLATELET COUNT 150 x10^3/uL (130-400); RED BLOOD COUNT 4.84 x10^6/uL (3.82-5.3); RED CELL DISTRIBUTION WIDTH 15.1 % (9.6-15.2)
[2019-03-02 05:27] LABS: ANION GAP 6 mmol/L (5-15); CALCIUM 9.2 mg/dL (8.5-10.1); CHLORIDE 95 mmol/L (98-107); CREATININE 0.95 mg/dL (0.55-1.02)
[2019-03-02] MEDS: LEVOTHYROXINE 200 MCG TABLET PO SCH (05:35)
[2019-03-02 06:45] VITALS: BP 104/57
[2019-03-02] MEDS: SERTRALINE 50MG TABLET PO SCH (08:48)
[2019-03-02] MEDS: LIOTHYRONINE 5 MCG TABLET PO SCH (08:49)
[2019-03-02] MEDS: SULFAMETH./TRIMETHOPRIM DS 800MG/160MG TABLET PO SCH (08:49)
[2019-03-02] MEDS: DILTIAZEM 240 MG CAP.ER.24H PO SCH (08:49)
[2019-03-02] MEDS: APIXABAN 5 MG TABLET PO SCH (08:49)
[2019-03-02] MEDS ORDERED: POTASSIUM CHLORIDE 10 MEQ TABLET.ER PO SCH (09:00)
[2019-03-02] MEDS ORDERED: SPIRONOLACTONE 25 MG TABLET PO SCH (09:00)
[2019-03-02] MEDS ORDERED: FUROSEMIDE 80 MG TABLET PO SCH (09:00)
[2019-03-02 12:15] VITALS: BP 102/67
[2019-03-02 15:00] VITALS: BP 120/83
[2019-03-02] MEDS ORDERED: APIX5TAB PO (15:55)
[2019-03-02] MEDS ORDERED: SPIR25TA5 PO (15:55)
[2019-03-02] MEDS ORDERED: DILT240C55 PO (15:55)
[2019-03-03] MEDS ORDERED: FUROSEMIDE 40 MG/4 ML IV SCH (09:00)
== END 2019-03-02 16:45 | disposition home health service (06) | DRG 291 ==
LOC: ED 19:14 → EDIP 20:10 → 5SO 21:19 → DCLOUNGE 03-02 16:38
PROVIDERS: ADMIT Family Medicine; ATTEND Family Medicine
PROC: 5A09357 Assistance with Respiratory Ventilation, Less than 24 Consecutive Hours, Continuous Positive Airway Pressure (ICD-10-PCS; principal; 2019-02-22)
PROC: 5A09357 Assistance with Respiratory Ventilation, Less than 24 Consecutive Hours, Continuous Positive Airway Pressure (ICD-10-PCS; 2019-02-25)
PROC: 5A09357 Assistance with Respiratory Ventilation, Less than 24 Consecutive Hours, Continuous Positive Airway Pressure (ICD-10-PCS; 2019-02-28)
PROC: 5A09357 Assistance with Respiratory Ventilation, Less than 24 Consecutive Hours, Continuous Positive Airway Pressure (ICD-10-PCS; 2019-03-01)
DX: I50.31 Acute diastolic (congestive) heart failure (principal); J96.20 Acute and chronic respiratory failure, unspecified whether with hypoxia or hypercapnia; F33.9 Major depressive disorder, recurrent, unspecified; D68.69 Other thrombophilia; N39.0 Urinary tract infection, site not specified; Z68.43 Body mass index [BMI] 50.0-59.9, adult; E66.01 Morbid (severe) obesity due to excess calories; I48.91 Unspecified atrial fibrillation; E03.9 Hypothyroidism, unspecified; F41.0 Panic disorder [episodic paroxysmal anxiety]; G47.33 Obstructive sleep apnea (adult) (pediatric); I87.8 Other specified disorders of veins; I27.29 Other secondary pulmonary hypertension; N28.9 Disorder of kidney and ureter, unspecified; I87.2 Venous insufficiency (chronic) (peripheral); I73.9 Peripheral vascular disease, unspecified; M06.9 Rheumatoid arthritis, unspecified; Z87.891 Personal history of nicotine dependence; Z90.710 Acquired absence of both cervix and uterus; Z88.1 Allergy status to other antibiotic agents; Z91.013 Allergy to seafood; Z91.018 Allergy to other foods; Z80.8 Family history of malignant neoplasm of other organs or systems; Z99.81 Dependence on supplemental oxygen; Z79.01 Long term (current) use of anticoagulants
CPT/HCPCS: 36415; 71045; 80048; 81001; 82040; 83735; 83880; 84439; 84443; 84481; 84484; 85025; 85520; 85610; 86140; 87077; 87086; 87186; 93005; 93306; 99285; G0378; J1644; J1940; J3475

== ENCOUNTER 2019-03-07 15:25 | Inpatient (IN) | payer BC ==
[~2019-03-07] VITALS: Ht 167.6 cm; Wt 153.6 kg
[~2019-03-07 15:25] MED LIST changes: +APIX5TAB PO; +DILT240C55 PO; +POTA10CA PO
--- NOTE | 2019-03-07 16:13 | NUR ---
PT ARRIVED TO ROOM 23 WITH TECH, ON HOME O2 5L, VIA WHEELCHAIR. PT SOB, O2 SAT 84% ON 5L NC. PT TRANSITIONED TO OXYMASK 8L AND O2 SAT IMPROVED TO 94%. PT DRESSED IN GOWN AND ATTACHED TO MONITOR, MD AT BEDSIDE FOR EXAM AND NEW ORDERS RECEIVED. FAMILY AT BEDSIDE. PT AAO X 4, C/O SOB AND LOW O2 SAT, REFERRED BY GEAR CUTTING MACHINE OPERATOR FOR HOPSITAL ADMISSION AND MD AWARE. PT RECENTLY DIAGNOSED WITH AFIB AND NEW HOME O2 DEPENDENT. FALL PRECAUTIONS IN PLACE, PIV ESTABLISHED, CALL LIGHT WITHIN REACH.
--- NOTE | 2019-03-07 16:15 | NUR ---
XRAY AT BEDSIDE.
--- NOTE | 2019-03-07 16:20 | NUR ---
LAB AT BEDSIDE.
[2019-03-07 16:34] LABS: BASOPHILS # (AUTO) 0.02 x10^3/uL (0-0.1); BASOPHILS % (AUTO) 0 % (0-1); EOSINOPHILS # (AUTO) 0.18 x10^3/uL (0-0.4); EOSINOPHILS % (AUTO) 3 % (1-7); LYMPHOCYTES # (AUTO) 0.38 x10^3/uL (1-3.4); LYMPHOCYTES % (AUTO) 6 % (22-44); MD NO; MEAN CORPUSCULAR VOLUME 93.8 fL (80-100); MEAN PLATELET VOLUME 8.3 fL (7.4-10.4); MONOCYTES # (AUTO) 0.63 x10^3/uL (0.2-0.8); MONOCYTES % (AUTO) 10 % (2-9); NEUTROPHILS # (AUTO) 5.22 x10^3/uL (1.8-6.8); NEUTROPHILS % (AUTO) 81 % (42-75); PLATELET COUNT 157 x10^3/uL (130-400); RED BLOOD COUNT 4.89 x10^6/uL (3.82-5.3); RED CELL DISTRIBUTION WIDTH 14.8 % (9.6-15.2)
[2019-03-07 16:39] LABS: ALBUMIN 3.1 g/dL (3.4-5.0); ANION GAP 7 mmol/L (5-15); CALCIUM 9.6 mg/dL (8.5-10.1); CHLORIDE 98 mmol/L (98-107); CREATININE 0.86 mg/dL (0.55-1.02); INTERNATIONAL NORMALIZED RATIO 1.18 (0.93-1.1); PROTHROMBIN TIME 12.3 Seconds (9.6-11.5)
[2019-03-07 16:43] LABS: TROPONIN I < 0.015 ng/mL (0.000-0.045)
--- NOTE | 2019-03-07 17:00 | NUR ---
ALL RESULTS BACK AT THIS TIME, CHART UP FOR RECHECK
--- NOTE | 2019-03-07 17:13 | NUR ---
PT RESTING IN ROOM, VSS, CONTINUES TO SAT 95% OR ABOVE ON 8L. ICE CHIPS AND CRACKERS PROVIDED PER PT REQUEST WITH MD PERMISSION. PT TO BE ADMITTED. CALL LIGHT WITHIN REACH
[2019-03-07] MEDS ORDERED: SODIUM CHLORIDE FLUSH 10ML SYR IVF PRN (17:30)
--- NOTE | 2019-03-07 17:53 | NUR ---
REPORT GIVEN TO KESHAWN RN, PT TO TRANSFER TO 503.
[2019-03-07 18:34] VITALS: BP 122/72
[2019-03-07] MEDS ORDERED: LABETALOL 5 MG/ML SYRINGE IVPush PRN (20:00)
[2019-03-07] MEDS ORDERED: APIXABAN 5 MG TABLET PO SCH (21:00)
[2019-03-07] MEDS: SERTRALINE 50MG TABLET PO SCH (21:00)
[2019-03-07] MEDS ORDERED: SERTRALINE 100MG TABLET ONE (22:01)
[2019-03-07] MEDS: methylPREDNISolone SOD SUCC 125 MG/2 ML IVPush SCH (22:19)
[2019-03-07] MEDS: FUROSEMIDE 40 MG TABLET PO SCH (22:19)
[2019-03-07] MEDS: LORazepam 1MG TABLET PO PRN (22:30)
[2019-03-08 00:31] VITALS: BP 122/75
[2019-03-08] MEDS ORDERED: LORazepam 1MG TABLET PO ONE (01:30)
[2019-03-08] MEDS ORDERED: OMNIPAQUE 350 MG/ML, 100ML BOTTLE ONE (02:24)
[2019-03-08] MEDS: ACETAMINOPHEN 325 MG TABLET PO PRN ×2 (03:31→20:23)
[2019-03-08] MEDS: methylPREDNISolone SOD SUCC 125 MG/2 ML IVPush SCH ×4 (03:31→22:39)
[2019-03-08 04:53] LABS: MEAN CORPUSCULAR HEMOGLOBIN 30.7 pg (27.0-34.8); MEAN CORPUSCULAR HGB CONC 32.6 g/dL (32.4-35.8); MEAN CORPUSCULAR VOLUME 94.3 fL (80-100); MEAN PLATELET VOLUME 7.7 fL (7.4-10.4); PLATELET COUNT 143 x10^3/uL (130-400); RED BLOOD COUNT 4.82 x10^6/uL (3.82-5.3); RED CELL DISTRIBUTION WIDTH 15.1 % (9.6-15.2)
[2019-03-08 05:06] LABS: ANION GAP 6 mmol/L (5-15); CALCIUM 9.2 mg/dL (8.5-10.1); CHLORIDE 97 mmol/L (98-107)
[2019-03-08 05:17] LABS: CREATININE 0.79 mg/dL (0.55-1.02); FREE T4 (FREE THYROXINE) 1.06 ng/dL (0.76-1.46)
[2019-03-08 05:44] LABS: BASOPHILS # (AUTO) 0.01 x10^3/uL (0-0.1); BASOPHILS % (AUTO) 0 % (0-1); EOSINOPHILS # (AUTO) 0.01 x10^3/uL (0-0.4); EOSINOPHILS % (AUTO) 0 % (1-7); LYMPHOCYTES # (AUTO) 0.17 x10^3/uL (1-3.4); LYMPHOCYTES % (AUTO) 3 % (22-44); MD SCAN; MONOCYTES # (AUTO) 0.04 x10^3/uL (0.2-0.8); MONOCYTES % (AUTO) 1 % (2-9); NEUTROPHILS # (AUTO) 5.76 x10^3/uL (1.8-6.8); NEUTROPHILS % (AUTO) 96 % (42-75)
[2019-03-08 07:06] VITALS: BP 126/79
[2019-03-08] MEDS: SPIRONOLACTONE 25 MG TABLET PO SCH (10:02)
[2019-03-08] MEDS: LIOTHYRONINE 5 MCG TABLET PO SCH (10:02)
[2019-03-08] MEDS: LEVOTHYROXINE 200 MCG TABLET PO SCH (10:02)
[2019-03-08] MEDS: FUROSEMIDE 40 MG TABLET PO SCH ×2 (10:02→20:23)
[2019-03-08] MEDS: SERTRALINE 50MG TABLET PO SCH ×2 (10:03→20:23)
[2019-03-08] MEDS: DILTIAZEM 240 MG CAP.ER.24H PO SCH (10:03)
[2019-03-08] MEDS: POTASSIUM CHLORIDE 10 MEQ TABLET.ER PO SCH (10:03)
[2019-03-08 13:04] VITALS: BP 97/68
[2019-03-08 19:27] VITALS: BP 121/69
[2019-03-09 00:43] VITALS: BP 125/65
[2019-03-09] MEDS: methylPREDNISolone SOD SUCC 125 MG/2 ML IVPush SCH ×4 (04:42→23:34)
[2019-03-09 05:12] LABS: ANION GAP 5 mmol/L (5-15); CALCIUM 9.5 mg/dL (8.5-10.1); CHLORIDE 97 mmol/L (98-107)
[2019-03-09 05:14] LABS: CREATININE 0.73 mg/dL (0.55-1.02)
[2019-03-09 07:14] VITALS: BP 119/81
[2019-03-09] MEDS: LEVOTHYROXINE 200 MCG TABLET PO SCH (10:19)
[2019-03-09] MEDS: SPIRONOLACTONE 25 MG TABLET PO SCH (10:19)
[2019-03-09] MEDS: FUROSEMIDE 40 MG TABLET PO SCH (10:19)
[2019-03-09] MEDS: LIOTHYRONINE 5 MCG TABLET PO SCH (10:19)
[2019-03-09] MEDS: DILTIAZEM 240 MG CAP.ER.24H PO SCH (10:25)
[2019-03-09] MEDS: SERTRALINE 50MG TABLET PO SCH ×2 (10:25→20:46)
[2019-03-09] MEDS ORDERED: SODIUM CHLORIDE NASAL SPRAY 45ML BOTTLE NAS PRN (13:30)
[2019-03-09] MEDS ORDERED: LIDOCAINE 1%, 20ML ONE (13:51)
[2019-03-09] MEDS ORDERED: VERAPAMIL 2.5 MG/ML, 2ML ONE ×2 (13:51→14:10)
[2019-03-09] MEDS ORDERED: FENTANYL PF 100 MCG/2ML ONE (14:10)
[2019-03-09] MEDS ORDERED: MIDAZOLAM 1 MG/ML, 5ML ONE (14:10)
[2019-03-09] MEDS ORDERED: TICAGRELOR 90 MG TABLET ONE (14:10)
[2019-03-09] MEDS ORDERED: BIVALIRUDIN 250 MG ONE (14:10)
[2019-03-09] MEDS ORDERED: HEPARIN 1,000 UNITS/ML, 10ML ONE (14:10)
[2019-03-09] MEDS ORDERED: LIDOCAINE-MPF 1%, 5ML ONE (14:11)
[2019-03-09 15:40] VITALS: BP 114/71
[2019-03-09] MEDS: POTASSIUM CHLORIDE 10 MEQ TABLET.ER PO SCH (17:39)
[2019-03-09] MEDS: FUROSEMIDE 40 MG/4 ML IV SCH (17:41)
[2019-03-09 19:02] VITALS: BP 120/82
[2019-03-09] MEDS: ACETAMINOPHEN 325 MG TABLET PO PRN (20:46)
[2019-03-10 00:15] VITALS: BP 121/80
[2019-03-10 04:03] VITALS: BP 106/73
[2019-03-10 05:19] LABS: CALCIUM 9.5 mg/dL (8.5-10.1); CHLORIDE 96 mmol/L (98-107)
[2019-03-10 05:23] LABS: ANION GAP 6 mmol/L (5-15); CREATININE 0.83 mg/dL (0.55-1.02)
[2019-03-10 05:33] LABS: MEAN CORPUSCULAR HEMOGLOBIN 31.1 pg (27.0-34.8); MEAN CORPUSCULAR HGB CONC 32.7 g/dL (32.4-35.8); MEAN PLATELET VOLUME 8.2 fL (7.4-10.4); PLATELET COUNT 161 x10^3/uL (130-400); RED BLOOD COUNT 5.27 x10^6/uL (3.82-5.3); RED CELL DISTRIBUTION WIDTH 15.7 % (9.6-15.2)
[2019-03-10] MEDS: methylPREDNISolone SOD SUCC 125 MG/2 ML IVPush SCH ×4 (06:08→23:45)
[2019-03-10 06:10] LABS: BASOPHILS % (AUTO) 0 % (0-1); EOSINOPHILS % (AUTO) 0 % (1-7); LYMPHOCYTES # (AUTO) 0.17 x10^3/uL (1-3.4); LYMPHOCYTES % (AUTO) 2 % (22-44); MD SCAN; MONOCYTES # (AUTO) 0.21 x10^3/uL (0.2-0.8); MONOCYTES % (AUTO) 2 % (2-9); NEUTROPHILS # (AUTO) 9.27 x10^3/uL (1.8-6.8); NEUTROPHILS % (AUTO) 96 % (42-75)
[2019-03-10 07:15] VITALS: BP 107/73
[2019-03-10] MEDS ORDERED: SERTRALINE 100MG TABLET ONE (07:55)
[2019-03-10] MEDS: SPIRONOLACTONE 25 MG TABLET PO SCH (08:04)
[2019-03-10] MEDS: POTASSIUM CHLORIDE 10 MEQ TABLET.ER PO SCH (08:05)
[2019-03-10] MEDS: LIOTHYRONINE 5 MCG TABLET PO SCH (08:05)
[2019-03-10] MEDS: DILTIAZEM 240 MG CAP.ER.24H PO SCH (08:05)
[2019-03-10] MEDS: LEVOTHYROXINE 200 MCG TABLET PO SCH (08:05)
[2019-03-10] MEDS: SERTRALINE 50MG TABLET PO SCH ×2 (08:06→21:17)
[2019-03-10] MEDS: FUROSEMIDE 40 MG/4 ML IV SCH ×2 (08:06→17:17)
[2019-03-10] MEDS: ACETAMINOPHEN 325 MG TABLET PO PRN (10:23)
[2019-03-10] MEDS ORDERED: [UNRECOGNIZED DRUG - REMARK] XX SCH (10:30)
[2019-03-10] MEDS ORDERED: [UNRECOGNIZED DRUG - REMARK] MC PRN (10:30)
[2019-03-10] MEDS: HEPARIN 25,000 UNITS/500ML PMX 500 ML IV PRN (11:27)
[2019-03-10] MEDS ORDERED: HEPARIN 5,000 UNITS/ML, 1ML IV PRN (11:30)
[2019-03-10 13:11] VITALS: BP 96/43
[2019-03-10 19:09] VITALS: BP 126/69
[2019-03-11 00:31] VITALS: BP 115/72
[2019-03-11] MEDS: methylPREDNISolone SOD SUCC 125 MG/2 ML IVPush SCH ×3 (05:48→19:42)
[2019-03-11] MEDS: HEPARIN 25,000 UNITS/500ML PMX 500 ML IV PRN ×2 (06:21→23:42)
[2019-03-11 06:50] VITALS: BP 111/76
[2019-03-11] MEDS: LIOTHYRONINE 5 MCG TABLET PO SCH (10:35)
[2019-03-11] MEDS: FUROSEMIDE 40 MG/4 ML IV SCH ×2 (10:35→16:08)
[2019-03-11] MEDS: DILTIAZEM 240 MG CAP.ER.24H PO SCH (10:35)
[2019-03-11] MEDS: DOCUSATE 100 MG CAPSULE PO PRN ×2 (10:35→20:13)
[2019-03-11] MEDS: POTASSIUM CHLORIDE 10 MEQ TABLET.ER PO SCH (10:35)
[2019-03-11] MEDS: SPIRONOLACTONE 25 MG TABLET PO SCH (10:36)
[2019-03-11] MEDS: LEVOTHYROXINE 200 MCG TABLET PO SCH (10:36)
[2019-03-11] MEDS: SERTRALINE 50MG TABLET PO SCH ×2 (10:36→20:13)
[2019-03-11] MEDS: ACETAMINOPHEN 325 MG TABLET PO PRN (10:44)
[2019-03-11 12:02] VITALS: BP 113/71
[2019-03-11 20:08] VITALS: BP 102/59
[2019-03-12 00:22] VITALS: BP 122/57
[2019-03-12] MEDS: methylPREDNISolone SOD SUCC 125 MG/2 ML IVPush SCH ×3 (02:36→18:26)
[2019-03-12] MEDS: ACETAMINOPHEN 325 MG TABLET PO PRN (04:25)
[2019-03-12 05:03] LABS: CHLORIDE 95 mmol/L (98-107)
[2019-03-12 05:07] LABS: ANION GAP 5 mmol/L (5-15); CALCIUM 9.2 mg/dL (8.5-10.1); CREATININE 0.95 mg/dL (0.55-1.02)
[2019-03-12 05:20] LABS: BASOPHILS % (AUTO) 0 % (0-1); EOSINOPHILS % (AUTO) 0 % (1-7); LYMPHOCYTES # (AUTO) 0.11 x10^3/uL (1-3.4); LYMPHOCYTES % (AUTO) 2 % (22-44); MD NO; MEAN CORPUSCULAR HEMOGLOBIN 30.9 pg (27.0-34.8); MEAN CORPUSCULAR HGB CONC 32.5 g/dL (32.4-35.8); MEAN CORPUSCULAR VOLUME 95.1 fL (80-100); MEAN PLATELET VOLUME 8.2 fL (7.4-10.4); MONOCYTES % (AUTO) 4 % (2-9); NEUTROPHILS # (AUTO) 5.02 x10^3/uL (1.8-6.8); NEUTROPHILS % (AUTO) 94 % (42-75); PLATELET COUNT 123 x10^3/uL (130-400); RED BLOOD COUNT 5.14 x10^6/uL (3.82-5.3); RED CELL DISTRIBUTION WIDTH 15.5 % (9.6-15.2)
[2019-03-12 09:30] VITALS: BP 128/71
[2019-03-12] MEDS: LORazepam 1MG TABLET PO PRN (10:55)
[2019-03-12] MEDS: SERTRALINE 50MG TABLET PO SCH ×2 (10:56→20:30)
[2019-03-12] MEDS: SPIRONOLACTONE 25 MG TABLET PO SCH (10:56)
[2019-03-12] MEDS: FUROSEMIDE 40 MG/4 ML IV SCH ×2 (10:56→18:26)
[2019-03-12] MEDS: POTASSIUM CHLORIDE 10 MEQ TABLET.ER PO SCH (10:56)
[2019-03-12] MEDS: LIOTHYRONINE 5 MCG TABLET PO SCH (10:57)
[2019-03-12] MEDS: DILTIAZEM 240 MG CAP.ER.24H PO SCH (10:57)
[2019-03-12] MEDS: LEVOTHYROXINE 200 MCG TABLET PO SCH (10:57)
[2019-03-12 13:01] VITALS: BP 126/74
[2019-03-12] MEDS: HEPARIN 25,000 UNITS/500ML PMX 500 ML IV PRN (18:30)
[2019-03-12] MEDS ORDERED: ONDANSETRON 2MG/ML, 2ML IVPush PRN (20:00)
[2019-03-12 20:16] VITALS: BP 106/67
[2019-03-13] VITALS: BP 118/81
[2019-03-13] MEDS: ACETAMINOPHEN 325 MG TABLET PO PRN ×2 (00:15→21:16)
[2019-03-13] MEDS: methylPREDNISolone SOD SUCC 125 MG/2 ML IVPush SCH ×4 (00:40→17:44)
[2019-03-13 02:43] VITALS: BP 122/61
[2019-03-13 06:31] VITALS: BP 114/52
[2019-03-13] MEDS: SPIRONOLACTONE 25 MG TABLET PO SCH (08:02)
[2019-03-13] MEDS: FUROSEMIDE 40 MG/4 ML IV SCH ×2 (08:02→17:43)
[2019-03-13] MEDS: POTASSIUM CHLORIDE 10 MEQ TABLET.ER PO SCH (08:02)
[2019-03-13] MEDS: SERTRALINE 50MG TABLET PO SCH ×2 (08:03→21:16)
[2019-03-13] MEDS: LEVOTHYROXINE 200 MCG TABLET PO SCH (08:03)
[2019-03-13] MEDS: LIOTHYRONINE 5 MCG TABLET PO SCH (08:03)
[2019-03-13] MEDS: DILTIAZEM 240 MG CAP.ER.24H PO SCH (08:03)
[2019-03-13 09:30] LABS: MEAN CORPUSCULAR HEMOGLOBIN 30.3 pg (27.0-34.8); MEAN CORPUSCULAR HGB CONC 32.1 g/dL (32.4-35.8); MEAN CORPUSCULAR VOLUME 94.3 fL (80-100); MEAN PLATELET VOLUME 7.9 fL (7.4-10.4); PLATELET COUNT 111 x10^3/uL (130-400); RED BLOOD COUNT 5.18 x10^6/uL (3.82-5.3)
[2019-03-13 09:40] LABS: ALBUMIN 2.9 g/dL (3.4-5.0); ANION GAP 5 mmol/L (5-15); CHLORIDE 94 mmol/L (98-107)
[2019-03-13 09:45] LABS: ALANINE AMINOTRANSFERASE 51 U/L (12-78); ALKALINE PHOSPHATASE 66 U/L (45-117); BILIRUBIN,TOTAL 1.7 mg/dL (0.2-1.0); CREATININE 0.99 mg/dL (0.55-1.02); TOTAL PROTEIN 6.6 g/dL (6.4-8.2)
[2019-03-13 10:25] LABS: BASOPHILS % (AUTO) 0 % (0-1); EOSINOPHILS % (AUTO) 0 % (1-7); LYMPHOCYTES # (AUTO) 0.13 x10^3/uL (1-3.4); LYMPHOCYTES % (AUTO) 3 % (22-44); MD SCAN; MONOCYTES # (AUTO) 0.13 x10^3/uL (0.2-0.8); MONOCYTES % (AUTO) 3 % (2-9); NEUTROPHILS # (AUTO) 4.58 x10^3/uL (1.8-6.8); NEUTROPHILS % (AUTO) 95 % (42-75)
[2019-03-13 12:09] VITALS: BP 122/75
[2019-03-13] MEDS: HEPARIN 25,000 UNITS/500ML PMX 500 ML IV PRN (13:36)
[2019-03-13 18:58] VITALS: BP 118/69
[2019-03-13] MEDS ORDERED: ARTIFICIAL TEARS 15 DROP/ML BOTTLE EACHEYE PRN (21:30)
[2019-03-14] MEDS: methylPREDNISolone SOD SUCC 125 MG/2 ML IVPush SCH ×4 (00:25→17:51)
[2019-03-14] MEDS: LORazepam 1MG TABLET PO PRN (00:25)
[2019-03-14 00:33] VITALS: BP 114/68
[2019-03-14 05:40] LABS: MEAN CORPUSCULAR HEMOGLOBIN 30.8 pg (27.0-34.8); MEAN CORPUSCULAR HGB CONC 32.4 g/dL (32.4-35.8); MEAN PLATELET VOLUME 8.1 fL (7.4-10.4); PLATELET COUNT 93 x10^3/uL (130-400); RED BLOOD COUNT 5.07 x10^6/uL (3.82-5.3)
[2019-03-14] MEDS: HEPARIN 25,000 UNITS/500ML PMX 500 ML IV PRN ×2 (05:47→23:20)
[2019-03-14 05:53] LABS: ALBUMIN 2.8 g/dL (3.4-5.0); ANION GAP 8 mmol/L (5-15); CALCIUM 8.9 mg/dL (8.5-10.1); CHLORIDE 92 mmol/L (98-107)
[2019-03-14 05:59] LABS: ALANINE AMINOTRANSFERASE 54 U/L (12-78); ALKALINE PHOSPHATASE 57 U/L (45-117); BILIRUBIN,TOTAL 2.1 mg/dL (0.2-1.0); CREATININE 0.77 mg/dL (0.55-1.02); TOTAL PROTEIN 6.8 g/dL (6.4-8.2)
[2019-03-14 06:30] LABS: BASOPHILS % (AUTO) 0 % (0-1); EOSINOPHILS # (AUTO) 0.01 x10^3/uL (0-0.4); EOSINOPHILS % (AUTO) 0 % (1-7); LYMPHOCYTES # (AUTO) 0.08 x10^3/uL (1-3.4); LYMPHOCYTES % (AUTO) 2 % (22-44); MONOCYTES # (AUTO) 0.16 x10^3/uL (0.2-0.8); MONOCYTES % (AUTO) 3 % (2-9); NEUTROPHILS # (AUTO) 4.58 x10^3/uL (1.8-6.8); NEUTROPHILS % (AUTO) 95 % (42-75)
[2019-03-14 06:31] LABS: MD SCAN
[2019-03-14 07:55] VITALS: BP 138/84
[2019-03-14] MEDS: SERTRALINE 50MG TABLET PO SCH ×2 (08:02→20:58)
[2019-03-14] MEDS: FUROSEMIDE 40 MG/4 ML IV SCH ×2 (08:02→17:52)
[2019-03-14] MEDS: LEVOTHYROXINE 200 MCG TABLET PO SCH (08:03)
[2019-03-14] MEDS: SPIRONOLACTONE 25 MG TABLET PO SCH (08:03)
[2019-03-14] MEDS: DILTIAZEM 240 MG CAP.ER.24H PO SCH (08:03)
[2019-03-14] MEDS: LIOTHYRONINE 5 MCG TABLET PO SCH (08:03)
[2019-03-14] MEDS: POTASSIUM CHLORIDE 10 MEQ TABLET.ER PO SCH (08:03)
[2019-03-14 12:18] VITALS: BP 117/71
[2019-03-14] MEDS ORDERED: DEXTROSE 50%, 50ML SYRINGE IVPush PRN (15:30)
[2019-03-14] MEDS ORDERED: GLUCAGON 1 MG IM PRN (15:30)
[2019-03-14] MEDS: INSULIN LISPRO 100 UNITS/ML, PEN SQ-INSULIN SCH ×2 (16:00→21:59)
[2019-03-14 19:39] VITALS: BP 128/76
[2019-03-14] MEDS: SODIUM CHLORIDE FLUSH 10ML SYR IVF SCH (20:58)
[2019-03-15] MEDS: methylPREDNISolone SOD SUCC 125 MG/2 ML IVPush SCH ×3 (01:50→12:28)
[2019-03-15 04:00] VITALS: BP 114/70
[2019-03-15 05:55] LABS: MEAN CORPUSCULAR HEMOGLOBIN 30.5 pg (27.0-34.8); MEAN CORPUSCULAR HGB CONC 32.4 g/dL (32.4-35.8); MEAN CORPUSCULAR VOLUME 93.9 fL (80-100); MEAN PLATELET VOLUME 7.6 fL (7.4-10.4); PLATELET COUNT 92 x10^3/uL (130-400); RED BLOOD COUNT 5.06 x10^6/uL (3.82-5.3); RED CELL DISTRIBUTION WIDTH 14.7 % (9.6-15.2)
[2019-03-15 06:19] LABS: BASOPHILS % (AUTO) 0 % (0-1); EOSINOPHILS % (AUTO) 0 % (1-7); LYMPHOCYTES % (AUTO) 2 % (22-44); MD SCAN; MONOCYTES # (AUTO) 0.23 x10^3/uL (0.2-0.8); MONOCYTES % (AUTO) 4 % (2-9); NEUTROPHILS % (AUTO) 95 % (42-75)
[2019-03-15] MEDS: ACETAMINOPHEN 325 MG TABLET PO PRN ×2 (06:29→17:22)
[2019-03-15 07:27] VITALS: BP 106/61
[2019-03-15] MEDS: LEVOTHYROXINE 200 MCG TABLET PO SCH (08:12)
[2019-03-15] MEDS: LIOTHYRONINE 5 MCG TABLET PO SCH (08:12)
[2019-03-15] MEDS: INSULIN LISPRO 100 UNITS/ML, PEN SQ-INSULIN SCH ×3 (08:13→16:48)
[2019-03-15] MEDS: SERTRALINE 50MG TABLET PO SCH (08:13)
[2019-03-15] MEDS: DILTIAZEM 240 MG CAP.ER.24H PO SCH (08:13)
[2019-03-15] MEDS: SPIRONOLACTONE 25 MG TABLET PO SCH (08:13)
[2019-03-15] MEDS: FUROSEMIDE 40 MG/4 ML IV SCH (08:13)
[2019-03-15] MEDS: POTASSIUM CHLORIDE 10 MEQ TABLET.ER PO SCH (08:13)
[2019-03-15] MEDS: SODIUM CHLORIDE FLUSH 10ML SYR IVF SCH (08:14)
[2019-03-15] MEDS ORDERED: POTASSIUM CHLORIDE 20 MEQ TAB.ER.PRT PO SCH (11:30)
[2019-03-15] MEDS ORDERED: POTASSIUM CHLORIDE 20 MEQ TAB.ER.PRT PO ONE (13:30)
[2019-03-15 13:42] VITALS: BP 101/62
[2019-03-15] MEDS ORDERED: ONDA4VIA60 IVPush (16:42)
[2019-03-15] MEDS ORDERED: ACET325T26 PO (16:42)
[2019-03-15] MEDS ORDERED: POTA10TA5 PO (16:42)
[2019-03-15] MEDS ORDERED: PEG15DRO4 EACHEYE (16:42)
[2019-03-15] MEDS ORDERED: FURO10VI37 IV (16:42)
[2019-03-15] MEDS ORDERED: DILT240C55 PO (16:42)
[2019-03-15] MEDS ORDERED: METH125V16 IVPush (16:42)
[2019-03-15] MEDS ORDERED: DOCU-131 PO (16:42)
[2019-03-15] MEDS ORDERED: HEPA50002 IV (16:42)
[2019-03-15] MEDS ORDERED: LORA1TAB PO (16:42)
[2019-03-15] MEDS ORDERED: ACET250T2 PO (16:42)
[2019-03-15] MEDS ORDERED: DEXT50DI3 IVPush (16:42)
[2019-03-15] MEDS ORDERED: SODI44SP NAS (16:42)
[2019-03-15] MEDS ORDERED: GLUC1VIA IM (16:42)
[2019-03-15] MEDS ORDERED: LABE5VIA13 IVPush (16:42)
[2019-03-15] MEDS ORDERED: TRAM50TA2 PO (16:42)
[2019-03-15] MEDS ORDERED: INSU100I11 SQ-INSULIN (16:42)
[2019-03-15] MEDS: HEPARIN 25,000 UNITS/500ML PMX 500 ML IV PRN (16:47)
[2019-03-15] MEDS: LORazepam 1MG TABLET PO PRN (16:48)
== END 2019-03-15 18:24 | disposition short-term general hospital (02) | DRG 286 ==
LOC: ED 17:12 → EDIP 17:16 → 5SO 18:28
PROVIDERS: ADMIT Internal Medicine; ATTEND Internal Medicine
PROC: 4A023N8 Measurement of Cardiac Sampling and Pressure, Bilateral, Percutaneous Approach (ICD-10-PCS; principal; 2019-03-09)
PROC: B2111ZZ Fluoroscopy of Multiple Coronary Arteries using Low Osmolar Contrast (ICD-10-PCS; 2019-03-09)
PROC: B2151ZZ Fluoroscopy of Left Heart using Low Osmolar Contrast (ICD-10-PCS; 2019-03-09)
PROC: 5A09357 Assistance with Respiratory Ventilation, Less than 24 Consecutive Hours, Continuous Positive Airway Pressure (ICD-10-PCS; 2019-03-09)
PROC: 5A09357 Assistance with Respiratory Ventilation, Less than 24 Consecutive Hours, Continuous Positive Airway Pressure (ICD-10-PCS; 2019-03-10)
DX: I31.1 Chronic constrictive pericarditis (principal); J96.21 Acute and chronic respiratory failure with hypoxia; J86.9 Pyothorax without fistula; I50.23 Acute on chronic systolic (congestive) heart failure; D68.59 Other primary thrombophilia; E66.2 Morbid (severe) obesity with alveolar hypoventilation; F33.9 Major depressive disorder, recurrent, unspecified; Z68.43 Body mass index [BMI] 50.0-59.9, adult; N39.0 Urinary tract infection, site not specified; D69.6 Thrombocytopenia, unspecified; E03.9 Hypothyroidism, unspecified; F12.90 Cannabis use, unspecified, uncomplicated; F41.9 Anxiety disorder, unspecified; G47.33 Obstructive sleep apnea (adult) (pediatric); I11.0 Hypertensive heart disease with heart failure; I27.29 Other secondary pulmonary hypertension; I73.9 Peripheral vascular disease, unspecified; I27.81 Cor pulmonale (chronic); J44.9 Chronic obstructive pulmonary disease, unspecified; M06.9 Rheumatoid arthritis, unspecified; J84.10 Pulmonary fibrosis, unspecified; R32 Unspecified urinary incontinence; I48.2 Chronic atrial fibrillation; T38.0X5A Adverse effect of glucocorticoids and synthetic analogues, initial encounter; Z80.8 Family history of malignant neoplasm of other organs or systems; Z79.01 Long term (current) use of anticoagulants; Z87.891 Personal history of nicotine dependence; Z90.710 Acquired absence of both cervix and uterus; Z99.81 Dependence on supplemental oxygen; Z91.013 Allergy to seafood; Z88.8 Allergy status to other drugs, medicaments and biological substances; Z98.49 Cataract extraction status, unspecified eye
CPT/HCPCS: 36415; 93460; 99285; J3490; 71045; 71275; 80048; 80053; 82040; 82533; 82962; 83735; 83880; 84439; 84443; 84481; 84484; 85025; 85379; 85520; 85610; 85730; 93005; 99156; 99157; C1769; C1894; G0378; J0583; J1644; J1940; J2250; J2405; J3010; Q9967; J1815; J2930

== ENCOUNTER 2019-04-09 18:30 | Inpatient (IN) | payer BC ==
[~2019-04-09] VITALS: Ht 167.6 cm; Wt 126.2 kg
[2019-04-18 14:07] VITALS: BP 127/68
== END 2019-04-18 16:39 | DRG 292 ==
LOC: 5SO 18:30
PROVIDERS: ADMIT Hospitalist; ATTEND Hospitalist
DX: I50.43 Acute on chronic combined systolic (congestive) and diastolic (congestive) heart failure (principal); D68.69 Other thrombophilia; E46 Unspecified protein-calorie malnutrition; E87.1 Hypo-osmolality and hyponatremia; E87.3 Alkalosis; I31.1 Chronic constrictive pericarditis; N39.0 Urinary tract infection, site not specified; I31.9 Disease of pericardium, unspecified; E03.9 Hypothyroidism, unspecified; E66.01 Morbid (severe) obesity due to excess calories; Z71.3 Dietary counseling and surveillance; E87.6 Hypokalemia; F32.9 Major depressive disorder, single episode, unspecified; F41.9 Anxiety disorder, unspecified; G47.00 Insomnia, unspecified; I27.20 Pulmonary hypertension, unspecified; I48.2 Chronic atrial fibrillation; Z66 Do not resuscitate; I73.9 Peripheral vascular disease, unspecified; K59.00 Constipation, unspecified; M06.9 Rheumatoid arthritis, unspecified; N28.9 Disorder of kidney and ureter, unspecified; R73.03 Prediabetes; S70.12XA Contusion of left thigh, initial encounter; Z51.5 Encounter for palliative care; Z79.82 Long term (current) use of aspirin; Z79.890 Hormone replacement therapy; Z79.899 Other long term (current) drug therapy; Z80.8 Family history of malignant neoplasm of other organs or systems; Z87.891 Personal history of nicotine dependence; Z90.710 Acquired absence of both cervix and uterus; Z99.81 Dependence on supplemental oxygen; W18.39XA Other fall on same level, initial encounter; Y93.89 Activity, other specified; Y92.89 Other specified places as the place of occurrence of the external cause; Y99.8 Other external cause status; M54.9 Dorsalgia, unspecified; Z91.013 Allergy to seafood; Z88.8 Allergy status to other drugs, medicaments and biological substances; Z91.018 Allergy to other foods; R73.9 Hyperglycemia, unspecified
CPT/HCPCS: 36415; 74018; 80048; 80053; 82330; 83735; 84439; 84443; 85025; G0378; J1650

== ENCOUNTER 2019-07-25 07:44 | Inpatient (IN) | payer BC ==
[~2019-07-25] VITALS: Ht 170.2 cm; Wt 144.1 kg
[~2019-07-25 07:44] MED LIST changes: +ACET250T2 PO; +ACET325T26 PO; +ACET500T76 PO; +ASPI81TA45 PO; +ATOR40TA78 PO; +BUME2TAB3 PO; +DEXT50DI3 IVPush; +DILT120C48 PO; +DOCU-131 PO; +ENOX40SY4 SQ; +FURO10VI37 IV; +GLUC1VIA5 IM; +HEPA50002 IV; +HYDR10TA4 PO; +INSU100I11 SQ-INSULIN; +IPRA3AMP30 NEB; +LABE5VIA13 IVPush; +LEVO125T5 PO; +LIOT5TAB11 PO; -LIOT5TAB3 PO; +LORA1TAB PO; +MELA1TAB22 PO; +METH125V16 IVPush; +METO2.5T PO; +ONDA4VIA60 IVPush; +PEG15DRO4 EACHEYE; +POTA10TA5 PO; +POTA20TA14 PO; +SENN-31 PO; +SIME80TA16 PO; +SODI44SP NAS; +SULF1TAB23 PO; +TRAM50TA2 PO; +[UNRECOGNIZED DRUG - CODE] TP
[2019-07-25] MEDS ORDERED: PROPOFOL 100 ML IV ONE (08:00)
[2019-07-25] MEDS ORDERED: ROCURONIUM 10 MG/ML,10ML ONE (08:00)
[2019-07-25] MEDS ORDERED: MIDAZOLAM 1 MG/ML, 5ML ONE (08:00)
[2019-07-25] MEDS ORDERED: SUCCINYLCHOLINE 20 MG/ML, 10ML ONE (08:00)
[2019-07-25] MEDS ORDERED: FUROSEMIDE 40 MG/4 ML IV ONE (08:00)
--- NOTE | 2019-07-25 08:23 | NUR ---
BIB EMS FROM HOME. PT WITH GLF THIS MORNING C/O LEFT KNEE PAIN. WHEN EMS ARRIVED PT FOUND WITH CIRUMORAL CYANOSIS ON 4L NC SP02 87%. 100% NRB PLACED WITH EFECT. DR ARANGO AT [facility], PT ASSESSMENT REV. AND ORDERS REC'D. PT CHANGED FROM 100% NRB TO 6 L NC, SP02 94%. PT IS MORBIDLY OBESE, FROM WAIST DOWN SHE HAS 4+ EDEMA WITH AREAS OF PITTING AND NON-PITTING. CAP REFIL IS A FULL 3 SEC. FINGERS QUICKLY BECOME MOTTLED AND SP02 FALLS TO MID 80'S WITH ANY ACTIVITY. 02 DELIVERY CHANGED TO OXY MASK @ 8L WITH EFFECT. PT INCONTINENT OF URINE STOOL, STATES THAT SHE CAN FEEL THE URGE BUT IS NOT STRONG ENOUGH TO GET TO BATHROOM. CRISPIN AREA CLEANED AND DRY WICK PLACED IN ABDOMINAL FOLDS. CRISPIN WICK PLACED FOR URINE CONTAINEMENT. PT ON ALL MONITORS, LABS DRAWN INCLUDING BC X 2.
--- NOTE | 2019-07-25 08:42 | NUR ---
PT TO RADIOLOGY WITH TECH TRANSPORT. TECH INSTRUCTED TO HAVE MULTIPLE PERSONS FOR MOVING HELP PT DOES NOT TOLLERATE ACTIVITY. 02 TO BE KEPT ON AT ALL TIMES AT 10L. TECH VERBALIES UNDERSTANDING
[2019-07-25 08:47] LABS: BASOPHILS # (AUTO) 0.01 x10^3/uL (0-0.1); BASOPHILS % (AUTO) 0 % (0-1); EOSINOPHILS # (AUTO) 0.13 x10^3/uL (0-0.4); EOSINOPHILS % (AUTO) 2 % (1-7); LYMPHOCYTES # (AUTO) 0.37 x10^3/uL (1-3.4); LYMPHOCYTES % (AUTO) 6 % (22-44); MD NO; MEAN CORPUSCULAR HEMOGLOBIN 28.3 pg (27.0-34.8); MEAN CORPUSCULAR HGB CONC 31.8 g/dL (32.4-35.8); MEAN CORPUSCULAR VOLUME 89.1 fL (80-100); MEAN PLATELET VOLUME 7.3 fL (7.4-10.4); MONOCYTES # (AUTO) 0.52 x10^3/uL (0.2-0.8); MONOCYTES % (AUTO) 8 % (2-9); NEUTROPHILS % (AUTO) 84 % (42-75); PLATELET COUNT 168 x10^3/uL (130-400); RED BLOOD COUNT 4.95 x10^6/uL (3.82-5.3); RED CELL DISTRIBUTION WIDTH 16.7 % (9.6-15.2)
[2019-07-25 08:54] LABS: INTERNATIONAL NORMALIZED RATIO 1.22 (0.93-1.1); PROTHROMBIN TIME 12.7 Seconds (9.6-11.5)
[2019-07-25 08:57] LABS: ALANINE AMINOTRANSFERASE 24 U/L (12-78); ALBUMIN 3.1 g/dL (3.4-5.0); ANION GAP 4 mmol/L (5-15); CALCIUM 9.5 mg/dL (8.5-10.1); CHLORIDE 94 mmol/L (98-107); CREATININE 0.88 mg/dL (0.55-1.02)
[2019-07-25 09:01] LABS: ALKALINE PHOSPHATASE 90 U/L (45-117); BILIRUBIN,TOTAL 1.3 mg/dL (0.2-1.0); TOTAL PROTEIN 7.6 g/dL (6.4-8.2); TROPONIN I < 0.015 ng/mL (0.000-0.045)
--- NOTE | 2019-07-25 09:02 | NUR ---
REPORT RECEIVED FROM FLORENTINO FUNES. PT TRANSFERRED TO NEW ROOM WITHOUT ISSUE. SECOND MONITOR AT BEDSIDE TO MONITOR CARDIAC RHYTHM, IN ROOM MONITOR NOT READING. PT DENIES ANY NEEDS OR CONCERNS AT THIS TIME, CALL LIGHT IN REACH. PT TITRATED TO 6L ON OXYMASK.
--- NOTE | 2019-07-25 09:02 | NUR ---
PT RTD FROM RADIOLOGY. VSS. BEDSIDE SBAR RPT TO FLORENTINO GUTIERREZ. AND PT MOVED TO ROOM 13.
[2019-07-25] MEDS ORDERED: FUROSEMIDE 40 MG/4 ML ONE ×2 (09:05→13:44)
--- NOTE | 2019-07-25 09:19 | NUR ---
PT TO CT AT THIS TIME.
[2019-07-25] MEDS ORDERED: OMNIPAQUE 350 MG/ML, 100ML BOTTLE ONE (09:30)
[2019-07-25] MEDS ORDERED: PIPERACILLIN/TAZO/PMX 3.375GM 50 ML ONE (09:59)
[2019-07-25] MEDS ORDERED: PIPERACILLIN/TAZO/PMX 3.375GM 50 ML IVPB ONE (10:00)
[2019-07-25] MEDS ORDERED: VANCOMYCIN PER PHARMACY MC ONE (10:00)
[2019-07-25] MEDS ORDERED: VANCOMYCIN 2,000 MG in SODIUM CHLORIDE 0.9% 500 ML IV ONE (10:00)
--- NOTE | 2019-07-25 10:16 | NUR ---
PT RESTING IN BED, DROWSY BUT AROUSABLE TO VOICE. ERP IN AT BEDSIDE TO DISCUSS PLAN OF CARE, PT EXPRESSES UNDERSTANDING, DENIES ANY FURTHER NEEDS OR CONCERNS AT THIS TIME. CALL LIGHT IN LAP.
[2019-07-25] MEDS ORDERED: ETOMIDATE 20 MG/10 ML IV ONE (11:00)
[2019-07-25] MEDS ORDERED: SUCCINYLCHOLINE 20 MG/ML, 10ML IVPush ONE (11:00)
[2019-07-25] MEDS ORDERED: FENTANYL PF 100 MCG/2ML IV ONE (11:00)
[2019-07-25] MEDS ORDERED: MIDAZOLAM 1 MG/ML, 2ML IVPush PRN ×2 (11:00→12:30)
[2019-07-25] MEDS ORDERED: FENTANYL PF 100 MCG/2ML ONE (11:10)
[2019-07-25] MEDS: PROPOFOL 100 ML IV PRN ×3 (11:10→22:00)
[2019-07-25] MEDS ORDERED: SODIUM CHLORIDE 0.9% 1,000 ML IV SCH (11:13)
[2019-07-25] MEDS ORDERED: OXYcodone IR 5MG TABLET PO PRN (11:30)
[2019-07-25] MEDS ORDERED: ONDANSETRON 2MG/ML, 2ML IVPush PRN (11:30)
[2019-07-25] MEDS ORDERED: VANCOMYCIN PER PHARMACY MC PRN (11:30)
[2019-07-25] MEDS ORDERED: ENOXAPARIN 40 MG/0.4 ML SQ SCH (11:30)
[2019-07-25] MEDS ORDERED: BISACODYL 10 MG SUPP PR PRN ×2 (11:30→17:30)
[2019-07-25] MEDS ORDERED: POLYETHYLENE GLYCOL 17 GM PACKET PO PRN (11:30)
[2019-07-25] MEDS ORDERED: LABETALOL 5MG/ML, 20ML IVPush PRN (11:30)
[2019-07-25] MEDS ORDERED: morphine SULFATE 10 MG/ML, 1ML IVPush PRN (11:30)
[2019-07-25] MEDS ORDERED: MIDAZOLAM 1 MG/ML, 2ML ONE (12:31)
[2019-07-25 12:43] LABS: TROPONIN I < 0.015 ng/mL (0.000-0.045)
--- NOTE | 2019-07-25 13:12 | NUR ---
LATE ENTRY FOR EVENTS FROM 1100 - 1300. PT RESP STATUS DECLINING ORDER REC'D TO PREPARE PT FOR INTUBATION. ASSUMED PT CARE FROM MATT RN. PT MOVED TO TRAUMA BAY 3. I INFORMED PT OF PLAN FOR INTUBATION AND REVIEWED WITH HER WHAT TO EXPECT. PT VERBALIZED UNDERSTANDING. I ASSURED HER THAT I WOULD BE WITH HER AT ALL TIMES AND WOULD TAKE CARE OF HER AND KEEP HER COMFORTABLE. DR. ARANGO AT BEDSIDE AND ALSO EXPLAINED TO PT PLAN FOR INTUBATION. PT SEDATED NOTED WITH EFFECT AND WAS INTUBATED BY DR. ARANGO W/O DIFFICULTY. RT AT BEDSIDE AND PT PLACED ON VENTILATOR NOTED BY RT. 18FR ORAL NGT INSERTED, PLACEMENT VERIFIED BY AIR BOLUS AND PLACED TO LOW INTERMITANT SUCTION. PCXR OBATAINED AND ETT AND NGT PLACEMENT VERIFIED AND CONFIRMED WITH DR. ARANGO. 2ND PIV STARTED AND PROPOFOL GTT STARTED . PT BEGINING TO WAKE, CALMED WITH VEREBAL REASURANCE AND MED NOTED WITH FENTANYL AND VERSED WITH EFFECT. PEDROZA CATH INSERTED AND PLACED TO D/D. PTS DAUGHTER COLEMAN AT BEDSIDE. PT ASSESSMENT POC DISCUSSED AND QUESTIONS ANSWERED. DR. WATKINS AT BEDSIDE, PT ASSESSMENT, VENTILATION, SEDATION REVIEWED. POC DISCUSSED.
--- NOTE | 2019-07-25 13:18 | NUR ---
LATE ENTRY FOR 1300. SBAR RPT TO FLORENTINO VELEZ IN ICU. PT TRANSPORTED TO ICU W/O INCIDENT. VSS. ALL BELONGINGS WERE GIVEN TO PATIENTS DAUGHTER WHO VERBALIZED TO THIS RN THAT SHE WOULD TAKE THEM HOME. THIS INCLUDED PT CELL PHONE AND PURSE
[2019-07-25 13:37] LABS: MICROSCOPIC NOT IND
[2019-07-25 13:41] LABS: CULTURE INDICATED? NO
[2019-07-25] MEDS ORDERED: DILTIAZEM 30 MG TABLET ONE (13:44)
[2019-07-25] MEDS ORDERED: PHARMACOKINETIC MONITORING MC PRN (14:00)
--- NOTE | 2019-07-25 14:49 | NUR ---
TF GOAL if needed: with or without propofol: VITAL HIGH PROTEIN @ 70ML/HR
[2019-07-25] MEDS: PIPERACILLIN/TAZO/PMX 3.375GM 50 ML IV SCH ×2 (14:59→22:13)
[2019-07-25] MEDS: DILTIAZEM 30 MG TABLET PO SCH ×2 (15:09→22:01)
[2019-07-25] MEDS ORDERED: FUROSEMIDE 20 MG/2 ML ONE (15:49)
[2019-07-25] MEDS ORDERED: FUROSEMIDE 20 MG/2 ML IV ONE (16:00)
[2019-07-25] MEDS ORDERED: FUROSEMIDE 40 MG/4 ML IV SCH (17:00)
[2019-07-25] MEDS ORDERED: FUROSEMIDE 20 MG/2 ML IV SCH (17:00)
[2019-07-25] MEDS ORDERED: NOREPINEPHRINE 4 MG in SODIUM CHLORIDE 0.9% 246 ML IV PRN (17:07)
[2019-07-25] MEDS ORDERED: DEXTROSE 4 GM TAB.CHEW PO PRN (17:30)
[2019-07-25] MEDS ORDERED: LIDOCAINE-MPF 1%, 2ML ENDO PRN (17:30)
[2019-07-25] MEDS ORDERED: SENNA/DOCUSATE TABLET NG PRN (17:30)
[2019-07-25] MEDS ORDERED: GLUCAGON 1 MG IM PRN (17:30)
[2019-07-25] MEDS ORDERED: DEXTROSE 50%, 50ML SYRINGE IVPush PRN (17:30)
[2019-07-25] MEDS ORDERED: SENNA 176 MG/5 ML ORAL SOL NG PRN (17:30)
[2019-07-25] MEDS ORDERED: PHARMACY MAY ADJ FOR RENAL FX MC SCH (17:30)
[2019-07-25] MEDS ORDERED: LACTULOSE 20 GM/30 ML UDC NG PRN (17:30)
[2019-07-25 17:39] LABS: TROPONIN I < 0.015 ng/mL (0.000-0.045)
[2019-07-25 21:28] VITALS: BP 118/76
[2019-07-25] MEDS: FAMOTIDINE 20 MG/2 ML IVPush SCH (22:01)
[2019-07-25] MEDS: APIXABAN 5 MG TABLET PO SCH (22:01)
[2019-07-25] MEDS: SODIUM CHLORIDE FLUSH 10ML SYR IVF SCH (22:02)
[2019-07-26] MEDS: PROPOFOL 100 ML IV PRN ×7 (01:41→23:30)
[2019-07-26] MEDS: PIPERACILLIN/TAZO/PMX 3.375GM 50 ML IV SCH ×4 (03:54→22:00)
[2019-07-26 05:05] LABS: BASOPHILS % (AUTO) 0 % (0-1); CHLORIDE 96 mmol/L (98-107); EOSINOPHILS # (AUTO) 0.01 x10^3/uL (0-0.4); EOSINOPHILS % (AUTO) 0 % (1-7); LYMPHOCYTES # (AUTO) 0.22 x10^3/uL (1-3.4); LYMPHOCYTES % (AUTO) 5 % (22-44); MD NO; MEAN CORPUSCULAR HEMOGLOBIN 28.7 pg (27.0-34.8); MEAN CORPUSCULAR HGB CONC 32.2 g/dL (32.4-35.8); MEAN CORPUSCULAR VOLUME 89.3 fL (80-100); MONOCYTES # (AUTO) 0.26 x10^3/uL (0.2-0.8); MONOCYTES % (AUTO) 6 % (2-9); NEUTROPHILS # (AUTO) 3.81 x10^3/uL (1.8-6.8); NEUTROPHILS % (AUTO) 89 % (42-75); PLATELET COUNT 165 x10^3/uL (130-400); RED BLOOD COUNT 5.07 x10^6/uL (3.82-5.3)
[2019-07-26 05:12] LABS: ALANINE AMINOTRANSFERASE 18 U/L (12-78); ALBUMIN 2.6 g/dL (3.4-5.0); ALKALINE PHOSPHATASE 71 U/L (45-117); ANION GAP 3 mmol/L (5-15); BILIRUBIN,TOTAL 1.7 mg/dL (0.2-1.0); CALCIUM 9.4 mg/dL (8.5-10.1); CREATININE 0.76 mg/dL (0.55-1.02); TOTAL PROTEIN 6.6 g/dL (6.4-8.2)
[2019-07-26] MEDS: VANCOMYCIN 2,000 MG in SODIUM CHLORIDE 0.9% 500 ML IV SCH (05:36)
[2019-07-26] MEDS: DILTIAZEM 30 MG TABLET PO SCH ×3 (07:57→21:59)
[2019-07-26] MEDS ORDERED: DILTIAZEM 60 MG TABLET PO ONE (08:00)
[2019-07-26] MEDS ORDERED: AcetaZOLAMIDE INJ 500 MG IVPush SCH (09:00)
[2019-07-26] MEDS: SENNA/DOCUSATE TABLET PO SCH (09:37)
[2019-07-26] MEDS: FAMOTIDINE 20 MG/2 ML IVPush SCH ×2 (09:37→21:59)
[2019-07-26] MEDS: SODIUM CHLORIDE FLUSH 10ML SYR IVF SCH ×2 (09:38→22:00)
[2019-07-26] MEDS: APIXABAN 5 MG TABLET PO SCH ×2 (09:40→21:59)
[2019-07-26] MEDS ORDERED: FUROSEMIDE 20 MG/2 ML IV ONE ×2 (14:00→18:00)
[2019-07-26] MEDS ORDERED: IPRATROPIUM 0.5 MG/2.5 ML INHA ONE (17:09)
[2019-07-26 17:46] LABS: ANION GAP 4 mmol/L (5-15); CALCIUM 9.3 mg/dL (8.5-10.1); CHLORIDE 97 mmol/L (98-107)
[2019-07-26] MEDS: ATORVASTATIN 40 MG TABLET PO SCH (21:59)
[2019-07-26] MEDS: SERTRALINE 50MG TABLET PO SCH (21:59)
[2019-07-26] MEDS: SPIRONOLACTONE 25 MG TABLET PO SCH (21:59)
[2019-07-26] MEDS: IPRATROPIUM 0.5 MG/2.5 ML INHA NPPB SCH (22:09)
[2019-07-27] MEDS: VANCOMYCIN 2,000 MG in SODIUM CHLORIDE 0.9% 500 ML IV SCH ×2 (00:25→18:33)
[2019-07-27] MEDS: IPRATROPIUM 0.5 MG/2.5 ML INHA NPPB SCH ×5 (02:32→23:10)
[2019-07-27] MEDS: PIPERACILLIN/TAZO/PMX 3.375GM 50 ML IV SCH ×4 (03:23→22:08)
[2019-07-27] MEDS: PROPOFOL 100 ML IV PRN ×4 (03:23→22:09)
[2019-07-27 04:56] LABS: BASOPHILS # (AUTO) 0.01 x10^3/uL (0-0.1); BASOPHILS % (AUTO) 0 % (0-1); EOSINOPHILS # (AUTO) 0.01 x10^3/uL (0-0.4); EOSINOPHILS % (AUTO) 0 % (1-7); LYMPHOCYTES # (AUTO) 0.28 x10^3/uL (1-3.4); LYMPHOCYTES % (AUTO) 4 % (22-44); MD NO; MEAN CORPUSCULAR HEMOGLOBIN 28.6 pg (27.0-34.8); MEAN CORPUSCULAR VOLUME 89.2 fL (80-100); MEAN PLATELET VOLUME 7.5 fL (7.4-10.4); MONOCYTES # (AUTO) 0.73 x10^3/uL (0.2-0.8); MONOCYTES % (AUTO) 9 % (2-9); NEUTROPHILS # (AUTO) 6.76 x10^3/uL (1.8-6.8); NEUTROPHILS % (AUTO) 87 % (42-75); PLATELET COUNT 187 x10^3/uL (130-400); RED BLOOD COUNT 5.14 x10^6/uL (3.82-5.3); RED CELL DISTRIBUTION WIDTH 16.9 % (9.6-15.2)
[2019-07-27] MEDS: LEVOTHYROXINE 100 MCG TABLET PO SCH (06:16)
[2019-07-27] MEDS: SODIUM CHLORIDE FLUSH 10ML SYR IVF SCH ×2 (09:21→22:10)
[2019-07-27] MEDS: LIOTHYRONINE 5 MCG TABLET PO SCH (09:27)
[2019-07-27] MEDS: DILTIAZEM 30 MG TABLET PO SCH ×3 (09:27→22:09)
[2019-07-27] MEDS: FAMOTIDINE 20 MG/2 ML IVPush SCH ×2 (09:27→22:10)
[2019-07-27] MEDS: SPIRONOLACTONE 25 MG TABLET PO SCH ×2 (09:27→22:09)
[2019-07-27] MEDS: SERTRALINE 50MG TABLET PO SCH ×2 (09:27→22:09)
[2019-07-27] MEDS: APIXABAN 5 MG TABLET PO SCH ×2 (09:27→22:09)
[2019-07-27] MEDS: ASPIRIN 81 MG TABLET EC PO SCH (09:27)
[2019-07-27] MEDS: SENNA/DOCUSATE TABLET PO SCH (15:22)
[2019-07-27] MEDS ORDERED: FUROSEMIDE 40 MG/4 ML ONE (15:24)
[2019-07-27] MEDS: FUROSEMIDE 40 MG/4 ML IV SCH (15:26)
[2019-07-27] MEDS: ATORVASTATIN 40 MG TABLET PO SCH (22:09)
[2019-07-28] MEDS: PIPERACILLIN/TAZO/PMX 3.375GM 50 ML IV SCH ×4 (03:02→20:35)
[2019-07-28] MEDS: PROPOFOL 100 ML IV PRN ×2 (03:02→05:52)
[2019-07-28] MEDS: FUROSEMIDE 40 MG/4 ML IV SCH ×2 (05:53→07:57)
[2019-07-28] MEDS: LEVOTHYROXINE 100 MCG TABLET PO SCH (05:54)
[2019-07-28 06:20] LABS: BASOPHILS % (AUTO) 0 % (0-1); EOSINOPHILS # (AUTO) 0.09 x10^3/uL (0-0.4); EOSINOPHILS % (AUTO) 1 % (1-7); LYMPHOCYTES # (AUTO) 0.47 x10^3/uL (1-3.4); LYMPHOCYTES % (AUTO) 5 % (22-44); MD NO; MEAN CORPUSCULAR HEMOGLOBIN 28.6 pg (27.0-34.8); MEAN CORPUSCULAR HGB CONC 31.9 g/dL (32.4-35.8); MEAN CORPUSCULAR VOLUME 89.8 fL (80-100); MEAN PLATELET VOLUME 7.6 fL (7.4-10.4); MONOCYTES # (AUTO) 1.33 x10^3/uL (0.2-0.8); MONOCYTES % (AUTO) 14 % (2-9); NEUTROPHILS # (AUTO) 7.74 x10^3/uL (1.8-6.8); NEUTROPHILS % (AUTO) 80 % (42-75); PLATELET COUNT 190 x10^3/uL (130-400); RED BLOOD COUNT 5.15 x10^6/uL (3.82-5.3); RED CELL DISTRIBUTION WIDTH 17.3 % (9.6-15.2)
[2019-07-28 06:38] LABS: ALANINE AMINOTRANSFERASE 18 U/L (12-78); ALBUMIN 2.7 g/dL (3.4-5.0); ANION GAP 6 mmol/L (5-15); CHLORIDE 98 mmol/L (98-107); CREATININE 1.01 mg/dL (0.55-1.02)
[2019-07-28 06:40] LABS: ALKALINE PHOSPHATASE 61 U/L (45-117); BILIRUBIN,TOTAL 2.3 mg/dL (0.2-1.0); TOTAL PROTEIN 6.7 g/dL (6.4-8.2)
[2019-07-28] MEDS: IPRATROPIUM 0.5 MG/2.5 ML INHA NPPB SCH ×3 (07:05→18:20)
[2019-07-28] MEDS ORDERED: ALBUMIN HUMAN 25% 200 ML IV ONE (08:30)
[2019-07-28] MEDS: MIDAZOLAM 1 MG/ML, 2ML IV PRN ×3 (08:52→20:36)
[2019-07-28] MEDS: DILTIAZEM 30 MG TABLET PO SCH ×3 (09:00→20:36)
[2019-07-28] MEDS: SPIRONOLACTONE 25 MG TABLET PO SCH ×2 (09:00→20:35)
[2019-07-28] MEDS: SODIUM CHLORIDE FLUSH 10ML SYR IVF SCH ×2 (09:57→20:35)
[2019-07-28] MEDS: SERTRALINE 50MG TABLET PO SCH ×2 (10:01→20:36)
[2019-07-28] MEDS: SENNA/DOCUSATE TABLET PO SCH (10:02)
[2019-07-28] MEDS: ASPIRIN 81 MG TABLET EC PO SCH (10:02)
[2019-07-28] MEDS: LIOTHYRONINE 5 MCG TABLET PO SCH (10:02)
[2019-07-28] MEDS: FAMOTIDINE 20 MG/2 ML IVPush SCH ×2 (10:03→20:36)
[2019-07-28] MEDS: AcetaZOLAMIDE INJ 500 MG IVPush SCH (10:05)
[2019-07-28] MEDS: APIXABAN 5 MG TABLET PO SCH (10:05)
[2019-07-28 13:47] LABS: ALANINE AMINOTRANSFERASE 18 U/L (12-78); ALBUMIN 2.8 g/dL (3.4-5.0); ANION GAP 8 mmol/L (5-15); CALCIUM 8.4 mg/dL (8.5-10.1); CHLORIDE 98 mmol/L (98-107); CREATININE 0.94 mg/dL (0.55-1.02)
[2019-07-28 13:49] LABS: ALKALINE PHOSPHATASE 54 U/L (45-117); BILIRUBIN,TOTAL 1.5 mg/dL (0.2-1.0); TOTAL PROTEIN 6.4 g/dL (6.4-8.2)
[2019-07-28] MEDS ORDERED: AcetaZOLAMIDE INJ 500 MG IVPush ONE (15:30)
[2019-07-28] MEDS: ATORVASTATIN 40 MG TABLET PO SCH (20:35)
[2019-07-28 22:07] LABS: CULTURE INDICATED? YES; MICROSCOPIC INDICATED
[2019-07-28] MEDS ORDERED: VANCOMYCIN 2,000 MG in SODIUM CHLORIDE 0.9% 500 ML IV SCH (22:30)
[2019-07-29] MEDS: VANCOMYCIN 2,000 MG in SODIUM CHLORIDE 0.9% 500 ML IV SCH (00:35)
[2019-07-29] MEDS: MIDAZOLAM 1 MG/ML, 2ML IV PRN (00:35)
[2019-07-29] MEDS: PROPOFOL 100 ML IV PRN ×2 (01:04→16:27)
[2019-07-29] MEDS: IPRATROPIUM 0.5 MG/2.5 ML INHA NPPB SCH ×4 (01:55→20:00)
[2019-07-29] MEDS: PIPERACILLIN/TAZO/PMX 3.375GM 50 ML IV SCH ×4 (03:48→21:24)
[2019-07-29 05:37] LABS: BASOPHILS # (AUTO) 0.02 x10^3/uL (0-0.1); BASOPHILS % (AUTO) 0 % (0-1); EOSINOPHILS # (AUTO) 0.18 x10^3/uL (0-0.4); EOSINOPHILS % (AUTO) 3 % (1-7); LYMPHOCYTES # (AUTO) 0.33 x10^3/uL (1-3.4); LYMPHOCYTES % (AUTO) 5 % (22-44); MD NO; MEAN CORPUSCULAR HEMOGLOBIN 28.6 pg (27.0-34.8); MEAN CORPUSCULAR HGB CONC 31.7 g/dL (32.4-35.8); MEAN CORPUSCULAR VOLUME 90.2 fL (80-100); MEAN PLATELET VOLUME 7.4 fL (7.4-10.4); MONOCYTES # (AUTO) 0.81 x10^3/uL (0.2-0.8); MONOCYTES % (AUTO) 12 % (2-9); NEUTROPHILS # (AUTO) 5.66 x10^3/uL (1.8-6.8); NEUTROPHILS % (AUTO) 81 % (42-75); PLATELET COUNT 141 x10^3/uL (130-400); RED BLOOD COUNT 4.77 x10^6/uL (3.82-5.3); RED CELL DISTRIBUTION WIDTH 17.1 % (9.6-15.2)
[2019-07-29] MEDS: LEVOTHYROXINE 100 MCG TABLET PO SCH (06:17)
[2019-07-29] MEDS: FUROSEMIDE 40 MG/4 ML IV SCH (06:17)
[2019-07-29] MEDS: SODIUM CHLORIDE FLUSH 10ML SYR IVF SCH ×2 (09:11→21:24)
[2019-07-29] MEDS: DILTIAZEM 30 MG TABLET PO SCH ×3 (09:12→21:25)
[2019-07-29] MEDS: SENNA/DOCUSATE TABLET PO SCH (09:12)
[2019-07-29] MEDS: LIOTHYRONINE 5 MCG TABLET PO SCH (09:12)
[2019-07-29] MEDS: FAMOTIDINE 20 MG/2 ML IVPush SCH ×2 (09:12→21:24)
[2019-07-29] MEDS: POTASSIUM CHLORIDE 10% 40 MEQ/30 ML UDC PO SCH ×2 (09:12→21:24)
[2019-07-29] MEDS: SERTRALINE 50MG TABLET PO SCH ×2 (09:13→21:25)
[2019-07-29] MEDS: ASPIRIN 81 MG TABLET EC PO SCH (09:13)
[2019-07-29] MEDS: SPIRONOLACTONE 25 MG TABLET PO SCH ×2 (09:14→21:24)
[2019-07-29] MEDS: AcetaZOLAMIDE INJ 500 MG IVPush SCH (09:14)
[2019-07-29] MEDS: ATORVASTATIN 40 MG TABLET PO SCH (21:24)
[2019-07-29] MEDS ORDERED: OXYcodone 5 MG/5 ML ORAL.SOL UDC PO PRN (23:30)
[2019-07-30] MEDS: IPRATROPIUM 0.5 MG/2.5 ML INHA NPPB SCH ×2 (02:25→07:00)
[2019-07-30] MEDS: PIPERACILLIN/TAZO/PMX 3.375GM 50 ML IV SCH ×4 (03:17→20:09)
[2019-07-30 04:33] LABS: BASOPHILS # (AUTO) 0.01 x10^3/uL (0-0.1); BASOPHILS % (AUTO) 0 % (0-1); EOSINOPHILS # (AUTO) 0.35 x10^3/uL (0-0.4); EOSINOPHILS % (AUTO) 6 % (1-7); LYMPHOCYTES # (AUTO) 0.38 x10^3/uL (1-3.4); LYMPHOCYTES % (AUTO) 6 % (22-44); MD NO; MEAN CORPUSCULAR HEMOGLOBIN 28.6 pg (27.0-34.8); MEAN CORPUSCULAR HGB CONC 31.7 g/dL (32.4-35.8); MEAN CORPUSCULAR VOLUME 90.3 fL (80-100); MEAN PLATELET VOLUME 7.5 fL (7.4-10.4); MONOCYTES # (AUTO) 0.68 x10^3/uL (0.2-0.8); MONOCYTES % (AUTO) 11 % (2-9); NEUTROPHILS # (AUTO) 4.63 x10^3/uL (1.8-6.8); NEUTROPHILS % (AUTO) 76 % (42-75); PLATELET COUNT 124 x10^3/uL (130-400); RED BLOOD COUNT 4.81 x10^6/uL (3.82-5.3); RED CELL DISTRIBUTION WIDTH 17.8 % (9.6-15.2)
[2019-07-30] MEDS: LEVOTHYROXINE 100 MCG TABLET PO SCH (06:29)
[2019-07-30] MEDS: SPIRONOLACTONE 25 MG TABLET PO SCH ×2 (08:47→20:09)
[2019-07-30] MEDS: ASPIRIN 81 MG TABLET EC PO SCH (08:47)
[2019-07-30] MEDS: SERTRALINE 50MG TABLET PO SCH ×2 (08:47→20:10)
[2019-07-30] MEDS: LIOTHYRONINE 5 MCG TABLET PO SCH (08:47)
[2019-07-30] MEDS: FAMOTIDINE 20 MG/2 ML IVPush SCH ×2 (08:48→20:09)
[2019-07-30] MEDS: APIXABAN 5 MG TABLET PO SCH ×2 (08:48→20:10)
[2019-07-30] MEDS: FUROSEMIDE 20 MG/2 ML IV SCH ×2 (08:48→17:47)
[2019-07-30] MEDS: SENNA/DOCUSATE TABLET PO SCH (08:49)
[2019-07-30] MEDS: SODIUM CHLORIDE FLUSH 10ML SYR IVF SCH ×2 (08:49→19:51)
[2019-07-30] MEDS: VANCOMYCIN 2,000 MG in SODIUM CHLORIDE 0.9% 500 ML IV SCH (13:55)
[2019-07-30 15:05] LABS: HIT RESULT POSITIVE (NEGATIVE)
[2019-07-30] MEDS: ACETAMINOPHEN 325 MG TABLET PO PRN (19:49)
[2019-07-30] MEDS: ATORVASTATIN 40 MG TABLET PO SCH (20:10)
[2019-07-30] MEDS: OXYcodone IR 5MG TABLET PO PRN (22:59)
[2019-07-30] MEDS ORDERED: FUROSEMIDE 40 MG/4 ML ONE (23:11)
[2019-07-30] MEDS ORDERED: LORazepam 0.5MG TABLET PO PRN (23:30)
[2019-07-30] MEDS ORDERED: FUROSEMIDE 100 MG/10 ML IV ONE (23:30)
[2019-07-30] MEDS ORDERED: FUROSEMIDE 40 MG/4 ML IV ONE (23:30)
[2019-07-31] MEDS: PIPERACILLIN/TAZO/PMX 3.375GM 50 ML IV SCH (03:09)
[2019-07-31] MEDS: OXYcodone IR 5MG TABLET PO PRN (03:54)
[2019-07-31 04:36] LABS: BASOPHILS # (AUTO) 0.01 x10^3/uL (0-0.1); BASOPHILS % (AUTO) 0 % (0-1); EOSINOPHILS % (AUTO) 4 % (1-7); LYMPHOCYTES % (AUTO) 6 % (22-44); MD NO; MEAN CORPUSCULAR HEMOGLOBIN 28.8 pg (27.0-34.8); MEAN CORPUSCULAR HGB CONC 32.1 g/dL (32.4-35.8); MEAN CORPUSCULAR VOLUME 89.8 fL (80-100); MONOCYTES # (AUTO) 0.82 x10^3/uL (0.2-0.8); MONOCYTES % (AUTO) 11 % (2-9); NEUTROPHILS # (AUTO) 5.81 x10^3/uL (1.8-6.8); NEUTROPHILS % (AUTO) 79 % (42-75); PLATELET COUNT 125 x10^3/uL (130-400); RED BLOOD COUNT 4.81 x10^6/uL (3.82-5.3); RED CELL DISTRIBUTION WIDTH 17.5 % (9.6-15.2)
[2019-07-31 04:43] LABS: ALBUMIN 2.8 g/dL (3.4-5.0); ANION GAP 3 mmol/L (5-15); CALCIUM 8.9 mg/dL (8.5-10.1); CHLORIDE 98 mmol/L (98-107)
[2019-07-31 04:46] LABS: ALANINE AMINOTRANSFERASE 27 U/L (12-78); ALKALINE PHOSPHATASE 57 U/L (45-117); CREATININE 0.76 mg/dL (0.55-1.02); TOTAL PROTEIN 7.1 g/dL (6.4-8.2)
[2019-07-31] MEDS: LEVOTHYROXINE 100 MCG TABLET PO SCH (05:29)
[2019-07-31] MEDS: FUROSEMIDE 20 MG/2 ML IV SCH (05:29)
[2019-07-31 08:53] LABS: FREE T4 (FREE THYROXINE) 0.83 ng/dL (0.76-1.46)
[2019-07-31] MEDS ORDERED: AcetaZOLAMIDE INJ 500 MG IVPush SCH (09:00)
[2019-07-31] MEDS: SENNA/DOCUSATE TABLET PO SCH (09:00)
[2019-07-31] MEDS: SPIRONOLACTONE 25 MG TABLET PO SCH ×2 (10:57→20:29)
[2019-07-31] MEDS: APIXABAN 5 MG TABLET PO SCH ×2 (10:57→20:29)
[2019-07-31] MEDS: SERTRALINE 50MG TABLET PO SCH ×2 (10:57→20:29)
[2019-07-31] MEDS: LIOTHYRONINE 5 MCG TABLET PO SCH (10:57)
[2019-07-31] MEDS: ASPIRIN 81 MG TABLET EC PO SCH (10:57)
[2019-07-31] MEDS: SODIUM CHLORIDE FLUSH 10ML SYR IVF SCH ×2 (10:58→20:30)
[2019-07-31] MEDS: AMPICILLIN/SULBACTAM 3 GM in SODIUM CHLORIDE 0.9% 100 ML IV SCH ×3 (11:17→20:29)
[2019-07-31 15:26] VITALS: BP 169/93
[2019-07-31] MEDS: ACETAMINOPHEN 325 MG TABLET PO PRN (16:50)
[2019-07-31 18:57] VITALS: BP 103/62
[2019-07-31] MEDS: ATORVASTATIN 40 MG TABLET PO SCH (20:29)
[2019-08-01] MEDS: OXYcodone IR 5MG TABLET PO PRN (00:35)
[2019-08-01 01:47] VITALS: BP 122/77
[2019-08-01] MEDS: AMPICILLIN/SULBACTAM 3 GM in SODIUM CHLORIDE 0.9% 100 ML IV SCH (02:10)
[2019-08-01] MEDS ORDERED: LORazepam 2 MG/ML, 1ML IVPush PRN ×2 (05:30→09:00)
[2019-08-01] MEDS: LEVOTHYROXINE 100 MCG TABLET PO SCH (06:22)
[2019-08-01] MEDS ORDERED: ATROPINE OPHTH SOLN 1%, 5ML PO PRN (09:00)
[2019-08-01] MEDS ORDERED: SCOPOLAMINE PATCH, 1.5MG PATCH.TD72 TD SCH (09:00)
== END 2019-08-02 11:44 | disposition expired | DRG 207 ==
LOC: MERGE 07:44 → ED 11:09 → EDIP 11:10 → ICU 13:06 → CCU 07-27 14:02 → 4NW 07-31 15:08
PROVIDERS: ADMIT Internal Medicine; ATTEND Internal Medicine
PROC: 5A1955Z Respiratory Ventilation, Greater than 96 Consecutive Hours (ICD-10-PCS; principal; 2019-07-25)
PROC: 0BH17EZ Insertion of Endotracheal Airway into Trachea, Via Natural or Artificial Opening (ICD-10-PCS; 2019-07-25)
PROC: 0T9B70Z Drainage of Bladder with Drainage Device, Via Natural or Artificial Opening (ICD-10-PCS; 2019-07-25)
PROC: 5A09357 Assistance with Respiratory Ventilation, Less than 24 Consecutive Hours, Continuous Positive Airway Pressure (ICD-10-PCS; 2019-07-31)
DX: J96.21 Acute and chronic respiratory failure with hypoxia (principal); J15.211 Pneumonia due to Methicillin susceptible Staphylococcus aureus; I50.43 Acute on chronic combined systolic (congestive) and diastolic (congestive) heart failure; D68.69 Other thrombophilia; E66.2 Morbid (severe) obesity with alveolar hypoventilation; Z68.42 Body mass index [BMI] 45.0-49.9, adult; G93.40 Encephalopathy, unspecified; I42.5 Other restrictive cardiomyopathy; I48.20 Chronic atrial fibrillation, unspecified; Z99.11 Dependence on respirator [ventilator] status; I31.1 Chronic constrictive pericarditis; E03.9 Hypothyroidism, unspecified; Z91.013 Allergy to seafood; Z88.8 Allergy status to other drugs, medicaments and biological substances; Z91.018 Allergy to other foods; E87.6 Hypokalemia; F32.9 Major depressive disorder, single episode, unspecified; I11.0 Hypertensive heart disease with heart failure; I27.20 Pulmonary hypertension, unspecified; I73.9 Peripheral vascular disease, unspecified; J84.10 Pulmonary fibrosis, unspecified; F41.9 Anxiety disorder, unspecified; M06.9 Rheumatoid arthritis, unspecified; W18.39XA Other fall on same level, initial encounter; Y93.89 Activity, other specified; Y92.89 Other specified places as the place of occurrence of the external cause; Y99.8 Other external cause status; Z51.5 Encounter for palliative care; Z66 Do not resuscitate; Z79.01 Long term (current) use of anticoagulants; Z80.8 Family history of malignant neoplasm of other organs or systems; Z87.891 Personal history of nicotine dependence; Z90.710 Acquired absence of both cervix and uterus; Z91.14 Patient's other noncompliance with medication regimen; Z99.81 Dependence on supplemental oxygen
CPT/HCPCS: 31500; 36415; 36600; 72170; 96361; 96365; 96375; 99291; J3490; J7644; 71045; 71260; 80048; 80053; 80202; 81001; 81003; 82803; 83605; 83735; 83880; 84100; 84439; 84443; 84478; 84481; 84484; 85025; 85610; 86022; 87040; 87070; 87077; 87081; 87086; 87147; 87186; 87205; 93005; 93306; 94002; 94003; 94640; 94660; G0378; J0295; J1940; J2250; J2270; J2543; J2704; J3010; J3370; P9047; Q9967; J0330; J1120; J7030; J7040